=== PATIENT | female | born 1990 | race Caucasian/White ===

== ENCOUNTER → 2023-09-05 08:16 | Outpatient (CLI) | payer BC, SELFPAY ==
--- NOTE | ~2023-09-05 | US_ITS ---
US OB limited 09/05/2023 08:40 Indication: Follow-up subchorionic hemorrhage Procedure: Limited obstetrical ultrasound utilizing transabdominal technique Comparison: No prior studies for comparison. Findings: A single living intrauterine in breech presentation. Placenta is posterior measur ing 1.1 cm to the cervix. Cervical length is 5.2 cm. heart rate is 159 BPM. Amniotic fluid volu me is subjectively normal. No evidence for subchorionic hemorrhage. Impression: 1: Single living intrauterine in breech presentation. 2: Low-lying posterior placenta measuring 1.1 cm to the cervix. 2: No evidence for subchorionic hemorrhage. Reviewed, dictated and finalized at location L. Impression: 1: Single living intrauterine in breech presentation. 2: Low-lying posterior placenta measuring 1.1 cm to the cervix. 2: No evidence for subchorionic hemorrhage.
== END ==
PROVIDERS: PCP Obstetrics & Gynecology Gynecology; Visit Provider Obstetrics & Gynecology Gynecology
DX: O36.8910 Maternal care for other specified fetal problems, first trimester, not applicable or unspecified (principal); Z3A.00 Weeks of gestation of pregnancy not specified
CPT/HCPCS: 76815

== ENCOUNTER 2024-01-18 17:13 | Outpatient (CLI) | payer BC, SELFPAY ==
[2024-01-18] VITALS (15 sets, daily range): BP systolic 139–149; BP diastolic 85–98; PULSE 65–89; RESP 16; TEMP 37; O2SAT 99–100; BMI 40.5
[2024-01-18 17:51] LABS: Basophils Percent Auto 0.2 % (0.2-1.2); Eosinophils Percent Auto 0.2 % (0-4.4); Hematocrit 37.1 % (37.0-47.0); Hemoglobin 12.2 g/dL (12.0-15.0); Immature Granulocyte Absolute 0.09 K/mm3 (0.00-0.031); Immature Granulocyte Percent A 0.7 % (0-0.5); Lymphocytes Percent Auto 23.4 % (18.3-44.2); Mean Corpuscular HGB Conc 32.9 g/dl (32-36); Mean Corpuscular Hemoglobin 30.5 pg (26-34); Mean Corpuscular Volume 92.8 fl (80-100); Mean Platelet Volume 10.6 fl (7.4-10.4); Monocytes Absolute Auto 0.6 K/mm3 (0.1-0.6); Monocytes Percent Auto 4.9 % (2.6-8.5); Neutrophils Percent Auto 70.6 % (45.5-73.1); Platelet Count Result 285 k/mm3 (150-375); Red Cell Distribution Width 13.1 % (11.5-14.5); White Blood Count 12.8 K/mm3 (4.5-10.0)
[2024-01-18 17:58] LABS: Total Protein Urine Random 12 mg/dL
[2024-01-18 18:02] LABS: Alanine Aminotransferase 11 U/L (6-35); Albumin Level 3.5 g/dL (3.5-5.1); Alkaline Phosphatase 103 U/L (38-126); Anion Gap 6 mmol/L (8-16); Aspartate Amino Transferase 16 U/L (14-36); Bilirubin,Total 0.3 mg/dL (0.2-1.3); Blood Urea Nitrogen 5 mg/dL (7-17); Calcium 9.1 mg/dL (8.4-10.2); Carbon Dioxide 22 mmol/L (22-30); Chloride 104 mmol/L (98-107); Estimated Glomerular Filt Rate > 60; Glucose 89 mg/dL (65-110); Potassium 3.9 mmol/L (3.4-5.0); Sodium 132 mmol/L (137-145); Uric Acid 6.1 mg/dL (2.5-7.5)
[2024-01-18 18:08] LABS: Appearance Urine Cloudy (Clear); Bacteria Urine 3+ /hpf; Bilirubin Urine Negative (Negative); Blood Urine Negative (Negative); Color Urine Yellow (Yellow); Glucose Urine UA Negative (Negative); Ketones Urine Negative (Negative); Leukocyte Esterase Ur 3+ LEU/UL (Negative); Need Manual Microscopic Reviewed; Nitrate Urine Negative (Negative); Non Pathogenic Casts 0-2; Protein Urine Negative (Negative); RBC Urine 0-2 /hpf (0-2); Specific Grav Ur 1.008 (1.001-1.035); Squamous Epithelial Cell Urine Occasional /hpf (Few); Urobilinogen Urine 0.2 mg/dL (<2.0); WBC Urine 21-50 /hpf
[2024-01-18 18:09] LABS: Add Urine Microscopic? YES
--- NOTE | 2024-01-18 18:14 | PC.NURSE ---
Called and spoke with Dr. Monteiro. Informed MD of pt's BPs, lab results, and FHT. MD verbalized understanding, would like pt to proceed with 24 hr urine, discharge orders given at this time. RN repeated order to confirm.
== END 2024-01-18 18:22 | disposition home or self-care (01) ==
LOC: ANHOBOP 17:20 → ANHOBPP 17:20
PROVIDERS: PCP Nurse Practitioner Family; Visit Provider Obstetrics & Gynecology Gynecology
DX: O13.9 Gestational [pregnancy-induced] hypertension without significant proteinuria, unspecified trimester (principal)
CPT/HCPCS: 36415; 59025; 80053; 81001; 81050; 82570; 82575; 84156; 84550; 85025; 87086; 99199

== ENCOUNTER 2024-01-19 17:14 | Outpatient (NON) | payer BC, SELFPAY ==
[2024-01-19 17:24] VITALS: BMI 40.5
[2024-01-19 18:27] LABS: Collection Time Urine 24 HOURS
[2024-01-19 18:29] LABS: Total Volume 24 Hour Urine 1200 ml
[2024-01-19 18:30] LABS: Patient Weight 298 Lbs
[2024-01-19 18:40] LABS: Creatinine Clearance Urine 125.5 ml/min (75-125); Creatinine Urine 153.3 mg/dL; Total Protein Urine 24 Hr 84 mg/24hr (28-141); Total Protein Urine Random 7 mg/dL
== END 2024-01-19 17:15 | disposition home or self-care (01) ==
LOC: ANHOBOP 17:20
PROVIDERS: PCP Nurse Practitioner Family; Visit Provider Obstetrics & Gynecology Gynecology
DX: O13.9 Gestational [pregnancy-induced] hypertension without significant proteinuria, unspecified trimester (principal)
CPT/HCPCS: 81050; 82575; 84156

== ENCOUNTER 2024-01-21 10:07 | Observation (INO) | payer BC, SELFPAY ==
[2024-01-21 10:31] VITALS: BP 141/85; PULSE 87
[2024-01-21 10:46] VITALS: BP 152/81; PULSE 75
[2024-01-21 10:52] VITALS: BMI 40.5
[2024-01-21 11:01] VITALS: BP 147/81; PULSE 70
--- NOTE | 2024-01-21 11:15 | OBADM ---
This patient, Thang Garvin, admitted to the OB room OB Post 117 for observation. Patient/family oriented to hospital policies and general routines including ID bracelet, bed and alarms, visiting hours, pain management, procedures, bathroom and other care routines, personal items, smoking policy, room service/diet, and visiting hours. Patient/Family are encouraged to report perceived risks to care and to ask questions if they do not understand what they are told or what they should do. Pt. presents to OB unit with reports of falling down approx. 8 steps at home while carrying the laundry basket. She states she slid down most of them, then tumbled over after the last step with the laundry basket hitting the top of her abdomen. Pt. denies any bleeding, reports movement present since fall. Abdomen soft and non-tender upon palpation.
--- NOTE | 2024-01-21 11:21 | PC.NURSE ---
1105--Report to Dr. Cleary re: fhr tracing reactive, assessment findings, v.s., pt's Hx and recent lab results. Orders to monitor for a couple hours and if tracing continues to be reactive, DC home.
--- NOTE | 2024-01-23 11:54 | PM.OBTRLD ---
OB - Triage/Final Diagnosis Visit Information Comments/Additional reasons for admission: I have assessed the risk for this patient, Thang Riri Garvin, and determined that she would benefit from observation care. Final Diagnosis (1) Fall (on) (from) other stairs and steps, initial encounter: Code(s): W10.8XXA - Fall (on) (from) other stairs and steps, initial encounter Status: Acute
== END 2024-01-21 12:28 | disposition home or self-care (01) ==
PROVIDERS: Admitting Provider Obstetrics & Gynecology; PCP Nurse Practitioner Family; Visit Provider Obstetrics & Gynecology
DX: Z04.3 Encounter for examination and observation following other accident (principal); W10.8XXA Fall (on) (from) other stairs and steps, initial encounter; Z3A.34 34 weeks gestation of pregnancy
CPT/HCPCS: G0378; G0379

== ENCOUNTER 2024-01-31 12:45 | Outpatient (CLI) | payer BC, SELFPAY ==
[2024-01-31 13:10] LABS: Hematocrit 36.6 % (37.0-47.0); Hemoglobin 11.8 g/dL (12.0-15.0); Mean Corpuscular HGB Conc 32.2 g/dl (32-36); Mean Corpuscular Hemoglobin 29.9 pg (26-34); Mean Corpuscular Volume 92.9 fl (80-100); Mean Platelet Volume 11.1 fl (7.4-10.4); Platelet Count Result 260 k/mm3 (150-375); Red Blood Count 3.94 M/mm3 (4.2-5.4); White Blood Count 11.1 K/mm3 (4.5-10.0)
[2024-01-31 13:31] LABS: Alanine Aminotransferase 12 U/L (6-35); Albumin Level 3.2 g/dL (3.5-5.1); Alkaline Phosphatase 91 U/L (38-126); Anion Gap 5 mmol/L (8-16); Aspartate Amino Transferase 16 U/L (14-36); Bilirubin,Total 0.2 mg/dL (0.2-1.3); Blood Urea Nitrogen 8 mg/dL (7-17); Carbon Dioxide 22 mmol/L (22-30); Chloride 106 mmol/L (98-107); Estimated Glomerular Filt Rate > 60; Glucose 113 mg/dL (65-110); Sodium 133 mmol/L (137-145); Uric Acid 6.6 mg/dL (2.5-7.5)
== END 2024-01-31 12:46 | disposition home or self-care (01) ==
LOC: ANHLAB 12:46
PROVIDERS: PCP Nurse Practitioner Family; Visit Provider Advanced Practice Midwife
DX: O10.013 Pre-existing essential hypertension complicating pregnancy, third trimester (principal); O99.891 Other specified diseases and conditions complicating pregnancy; Z3A.00 Weeks of gestation of pregnancy not specified
CPT/HCPCS: 36415; 80053; 81050; 84156; 84550; 85027

== ENCOUNTER 2024-02-01 13:12 | Outpatient (CLI) | payer BC, SELFPAY ==
[2024-02-01 15:33] LABS: Total Volume 24 Hour Urine 1500 ml
[2024-02-01 15:42] LABS: Total Protein Urine 24 Hr 165 mg/24hr (28-141); Total Protein Urine Random 11 mg/dL
== END 2024-02-01 13:13 | disposition home or self-care (01) ==
LOC: ANHLAB 13:14
PROVIDERS: PCP Nurse Practitioner Family; Visit Provider Obstetrics & Gynecology Gynecology
DX: O99.891 Other specified diseases and conditions complicating pregnancy (principal); O10.013 Pre-existing essential hypertension complicating pregnancy, third trimester; Z3A.00 Weeks of gestation of pregnancy not specified
CPT/HCPCS: 81050; 84156

== ENCOUNTER 2024-02-02 16:10 | Inpatient (IN) | payer BC, SELFPAY ==
[2024-02-02] VITALS (29 sets, daily range): BP systolic 120–162; BP diastolic 68–104; PULSE 57–85; RESP 17; TEMP 36.1–36.6; BMI 41.8
--- NOTE | 2024-02-02 16:10 | LDADM ---
This patient, Thang Garvin, was admitted to Labor/Delivery/Recovery 104 on 02/02/24 at 16:10. Plans for labor, pain management and were discussed with patient. Patient/family oriented to hospital policies and general routines including ID bracelet, bed and alarms, visiting hours, pain management, procedures, bathroom and other care routines, personal items, smoking policy, room service/diet and guest tray routines, security routines, and visiting hours. Patient/Family are encouraged to report perceived risks to care and to ask questions if they do not understand what they are told or what they should do. See OBIX for further documentation.
[2024-02-02 17:23] LABS: Basophils Percent Auto 0.3 % (0.2-1.2); Eosinophils Percent Auto 0.3 % (0-4.4); Hematocrit 35.4 % (37.0-47.0); Hemoglobin 11.9 g/dL (12.0-15.0); Immature Granulocyte Absolute 0.06 K/mm3 (0.00-0.031); Immature Granulocyte Percent A 0.5 % (0-0.5); Lymphocytes Absolute Auto 3.16 K/mm3 (0.9-3.2); Mean Corpuscular HGB Conc 33.6 g/dl (32-36); Mean Corpuscular Hemoglobin 30.6 pg (26-34); Mean Platelet Volume 11.3 fl (7.4-10.4); Monocytes Absolute Auto 0.6 K/mm3 (0.1-0.6); Monocytes Percent Auto 5.1 % (2.6-8.5); Neutrophils Absolute Auto 7.4 K/mm3 (1.3-6.7); Neutrophils Percent Auto 65.8 % (45.5-73.1); Platelet Count Result 250 k/mm3 (150-375); Red Blood Count 3.89 M/mm3 (4.2-5.4); White Blood Count 11.3 K/mm3 (4.5-10.0)
[2024-02-02] MEDS: NIFEdipine 30 MG TAB.ER.24 PO ×2 (17:23→19:14)
[2024-02-02] MEDS: miSOPROStol 25 MCG TABLET BY MOUTH (17:23)
[2024-02-02 17:32] LABS: Alanine Aminotransferase 17 U/L (6-35); Albumin Level 3.2 g/dL (3.5-5.1); Alkaline Phosphatase 98 U/L (38-126); Anion Gap 2 mmol/L (8-16); Aspartate Amino Transferase 18 U/L (14-36); Bilirubin,Total 0.2 mg/dL (0.2-1.3); Blood Urea Nitrogen 8 mg/dL (7-17); Calcium 9.9 mg/dL (8.4-10.2); Carbon Dioxide 24 mmol/L (22-30); Chloride 109 mmol/L (98-107); Estimated CRCL calculation 154 ml/min; Estimated Glomerular Filt Rate > 60; Glucose 111 mg/dL (65-110); Potassium 3.7 mmol/L (3.4-5.0); Sodium 135 mmol/L (137-145); Uric Acid 6.8 mg/dL (2.5-7.5)
[2024-02-02] MEDS: CALCIUM CARBONATE (TUMS) 500 MG (200 MG ELEMENTAL) PO (18:14)
[2024-02-02] MEDS: miSOPROStol 25 MCG TABLET 50 MCG BY MOUTH (21:24)
[2024-02-02 22:17] LABS: Glucose Point of Care 103 mg/dl (65-105)
[2024-02-03] VITALS (293 sets, daily range): BP systolic 101–163; BP diastolic 54–112; PULSE 48–136; RESP 16–19; TEMP 36.2–37; O2SAT 93–100
[2024-02-03 01:33] LABS: Glucose Point of Care 80 mg/dl (65-105)
[2024-02-03] MEDS: miSOPROStol 25 MCG TABLET 50 MCG BY MOUTH (01:38)
[2024-02-03 05:15] LABS: Glucose Point of Care 122 mg/dl (65-105)
[2024-02-03] MEDS: LACTATED RINGERS 1,000 ML 125 ML IV CONT ×4 (05:39→23:37)
[2024-02-03] MEDS: OXYTOCIN 30 UNITS/NS 500 ML 30 UNITS/500 ML BAG IV CONT (05:40)
[2024-02-03] MEDS: NIFEdipine 30 MG TAB.ER.24 60 MG PO (05:50)
[2024-02-03] MEDS: FLUoxetine HCL 10 MG CAPSULE PO (06:03)
[2024-02-03 07:06] LABS: Glucose Point of Care 111 mg/dl (65-105)
--- NOTE | 2024-02-03 09:52 | WPDOBADMIT ---
Obstetrics - Admit Note Admission Note: record reviewed. No pertinent additions to the history and/or any subsequent changes in the physical findings that are not consistent with the expected course of the were found. Additions to the history and/or subsequent changes in the physical findings follow. Here with worsening BP and severe headache from office last pm for MIL. Patient with CHTN with significant increase in BP, meds, and symptoms it was recommended to induce. Cytotec last pm and progressed from / to . Changed to pitocin at 530 am. AROM with clear fluid at approx. 0900. Getting epidural. BP on admit and for first several hours elevated in severe range. Given her usual dose of Procardia XL 30 at 5pm and second dose added. BPs now 140-150's/90's. Continue MIL. Cervix /-2 FHTs reactive
--- NOTE | 2024-02-03 10:04 | WPDANESEPP ---
Anes - Eval Pre Procedure Procedure: Labor Epidural Date/Time: 02/03/24 10:04 Surgeon: Pedro Pablo Preop Diagnosis: Labor Pain Pre Op Diagnosis: Induction of Labor Patient Data Age: 33 Gender: F Height: 1.83 m Weight: 140 kg Last Vital Signs Temp 36.6 C 02/03/24 09:00 Pulse 76 02/03/24 10:01 Resp 19 02/03/24 09:00 BP 149/83 H 02/03/24 10:04 Pulse Ox 100 02/03/24 10:02 O2 Del Method Room Air 02/03/24 06:35 Allergies Allergy/AdvReac Type Severity Reaction Status Date / Time No Known Allergies Allergy Mild Verified 09/04/14 10:53 Home Medications Medication Instructions Recorded Confirmed Type fluoxetine 20 mg tablet 20 mg PO DAILY 01/18/24 02/02/24 History nifedipine 30 mg tablet,extended 30 mg PO HS 01/18/24 02/02/24 History release 24 hr (Procardia XL) vit no.133-ferrous 1 tablet PO DAILY 01/18/24 02/02/24 History fumarate 28 mg-folic acid 800 mcg tablet () nifedipine 60 mg tablet,extended 60 mg PO QAM 02/02/24 02/02/24 History release Laboratory Tests 02/02/24 02/02/24 02/02/24 17:13 17:13 17:13 WBC 11.3 H K/mm3 (4.5-10.0) RBC 3.89 L M/mm3 (4.2-5.4) Hgb 11.9 L g/dL (12.0-15.0) Hct 35.4 L % (37.0-47.0) MCV 91.0 fl (80-100) MCH 30.6 pg (26-34) MCHC 33.6 g/dl (32-36) RDW 13.0 % (11.5-14.5) Plt Count 250 k/mm3 (150-375) MPV 11.3 H fl (7.4-10.4) Immature Gran % (Auto) 0.5 % (0-0.5) Neut % (Auto) 65.8 % (45.5-73.1) Lymph % (Auto) 28.0 % (18.3-44.2) [place] % (Auto) 5.1 % (2.6-8.5) Eos % (Auto) 0.3 % (0-4.4) Baso % (Auto) 0.3 % (0.2-1.2) Lymph # (Auto) 3.16 K/mm3 (0.9-3.2) [place] # (Auto) 0.6 K/mm3 (0.1-0.6) Eos # (Auto) 0.0 K/mm3 (0-0.3) Baso # (Auto) 0.0 K/mm3 (0.0-0.1) Abs Immat Gran (auto) 0.06 H K/mm3 (0.00-0.031) Absolute Neuts (auto) 7.4 H K/mm3 (1.3-6.7) Absolute Nucleated RBC 0.0 K/mm3 (0.0-0.012) Nucleated RBC % 0.0 % (0.0-0.2) Sodium 135 L mmol/L Cancelled (137-145) Potassium 3.7 mmol/L Cancelled (3.4-5.0) Chloride 109 H mmol/L (98-107) Carbon Dioxide Anion Gap BUN Creatinine Estim Creat Clear Calc Estimated GFR Glucose POC Capillary Glucose Uric Acid Calcium Total Bilirubin AST ALT Alkaline Phosphatase Total Protein Albumin RPR Blood Type Antibody Screen 02/02/24 02/02/24 02/02/24 17:13 17:13 17:13 WBC RBC Hgb Hct MCV MCH MCHC RDW Plt Count MPV Immature Gran % (Auto) Neut % (Auto) Lymph % (Auto) [place] % (Auto) Eos % (Auto) Baso % (Auto) Lymph # (Auto) [place] # (Auto) Eos # (Auto) Baso # (Auto) Abs Immat Gran (auto) Absolute Neuts (auto) Absolute Nucleated RBC Nucleated RBC % Sodium Potassium Chloride Cancelled Carbon Dioxide 24 mmol/L Cancelled (22-30) Anion Gap 2 L mmol/L Cancelled (8-16) BUN 8 mg/dL (7-17) Creatinine Estim Creat Clear Calc Estimated GFR Glucose POC Capillary Glucose Uric Acid Calcium Total Bilirubin AST ALT Alkaline Phosphatase Total Protein Albumin
[2024-02-03 11:51] LABS: Glucose Point of Care 83 mg/dl (65-105)
[2024-02-03 15:51] LABS: Glucose Point of Care 118 mg/dl (65-105)
[2024-02-03] MEDS: NIFEdipine 30 MG TAB.ER.24 PO (17:15)
[2024-02-03] MEDS: fentaNYL CITRATE INJ (*CRX) 100 MCG/2 ML VIAL IV PUSH (18:18)
[2024-02-03] MEDS: SODIUM CHLORIDE 0.9% IV 300 ML 600 ML I-UTERINE ×2 (19:39→21:18)
[2024-02-03 19:48] LABS: Glucose Point of Care 120 mg/dl (65-105)
[2024-02-03] MEDS: SODIUM CHLORIDE 0.9% IV 1,000 ML 100 ML I-UTERINE ×2 (20:19→23:55)
[2024-02-03 22:01] LABS: Glucose Point of Care 92 mg/dl (65-105)
[2024-02-03 23:44] LABS: Glucose Point of Care 99 mg/dl (65-105)
[2024-02-04] VITALS (56 sets, daily range): BP systolic 118–160; BP diastolic 70–102; PULSE 71–171; RESP 18–20; TEMP 36.4–37.1; O2SAT 90–100
[2024-02-04 01:46] LABS: Glucose Point of Care 109 mg/dl (65-105)
[2024-02-04] MEDS: LIDOCAINE HCL 1% LOCAL INJ 20 ML VIAL (04:02)
--- NOTE | 2024-02-04 04:17 | PM.OBPRVD ---
OB - Vaginal Delivery Note Procedure Delivery date: 02/04/24 Events: Chronic Hypertension and Gestational Diabetes (GDMA1) Induction method: AROM, Per Misoprostol Protocol and Per Pitocin Protocol Delivery monitor: External FHT and Internal Uterine Route of delivery: Laceration Description: Perineal - 2nd Degree and Labial (extended to left lower labia) Delivery repair: vicryl (3-0 ) Specimen: Yes (placenta) Quantitative Blood Loss (ml): 300 Anesthesia type: Local Disposition: Floor Complications: No immediate complications [place] Baby Weeks of gestation at delivery: 36 (36 5/7 wks) gender: Male Weight (pounds): 6 Weight (ounces): 15 presentation: vertex position: Right Occiput Anterior Placenta delivery description: Spontaneous Cord Vessel Description: 3 Vessels, Nuchal Cord (tight x 2) and Delayed Cord Clamping Narrative: Apgars not assigned at the time of note
--- NOTE | 2024-02-04 04:21 | PM.OBDSVD ---
DS: Admitting Diagnosis Discharge Date 02/05/24 Admitting Diagnosis CHTN with worsening BP and Sx of PIH 36 3/7 wks DS: Discharge Diagnosis Discharge Diagnosis (1) (normal spontaneous vaginal delivery): Code(s): O80 - Encounter for full-term uncomplicated delivery Status: Acute OB - DS: Summary OB Procedures : NST, PIH Mgmt and Ultrasound OB Procedures Intrapartum: Spontaneous Vag Delivery OB Procedures: : None Peripartum Data Delivery Method: Natural Vaginal Laceration Description: Perineal - 2nd Degree and Labial (extended to left lower labia) complications: none Status at Discharge Functional status at discharge: independent ambulation Overall status at discharge: patient is progressing back to baseline Time Spent with Patient Time attestation: Total time spent providing and/or coordinating discharge services: DS: Data Data Completed and Pending Labs on day of discharge: Labs from last 24 hours 02/04/24 02/03/24 02/03/24 01:41 23:36 21:57 POC Capillary Glucose 109 H 99 92 02/03/24 02/03/24 02/03/24 19:45 15:41 11:46 POC Capillary Glucose 120 H 118 H 83 02/03/24 02/03/24 07:03 05:10 POC Capillary Glucose 111 H 122 H Discharge Plan Discharge Attending physician on discharge: Lalitha Monteiro Discharging Clinician: Lalitha Monteiro Anticipated Discharge Date/Time: 02/06/24 04:22 Patient Disposition: Home, Self-Care Activity: may shower, may drive after 2 weeks and pelvic rest Diet: regular Discharge Instructions: Education: Mom and Baby Guide Given to: Mother Follow-Up: Call your delivering provider's office for an appointment to be seen in: 1 Week Mom and baby should come to the [facility] for the follow-up appointment. Appointment Date/Time: February 06, 2024 at 11:00 am What to expect at your follow-up visit: Blood Pressure Check, Physical Assessment Call [phone] if you are unable to keep your appointment time. BREAST CARE: * Wear a snug supportive bra. * For engorgement discomfort: Breast Feeding: * Apply warm moist washcloths * Express milk as needed to relieve engorgement * Wear loose clothing Bottle Feeding: * May apply ice packs * For sore nipples: * Identify correct latch-on * Apply warm moist washcloths before and after nursing * Air dry nipples after nursing * May apply Lansinoh cream to nipples EPISIOTOMY/PERINEAL CARE: * Until bleeding stops, use your garrett bottle after urinating * Change your pad frequently throughout the day * You may take sitz baths several times a day (fill your bathtub with warm water and soak for 20 minutes.) Do NOT bathe in the water * No tub baths until seen by your physician - You may shower ACTIVITY: * Rest as much as possible. * Do not exercise or lift anything heavier than your baby (such as laundry or other children.) * Avoid stairs or driving as much as possible. * Do not put anything into the vagina. No douching, tampons, or sexual activity until seen by physician. NOTIFY PHYSICIAN IF YOU HAVE ANY QUESTIONS OR IF ANY OF THE FOLLOWING SYMPTOMS OCCUR: * If your episiotomy or incision becomes red, swollen, or more painful than what you have experienced in the hospital. * If your vaginal bleeding becomes foul smelling. * If your vaginal bleeding becomes more heavy than a period or if your bleeding changes from pink to bright red. However, you may pass an occasional walnut-sized clot once or twice for the first week . * If you experience a sharp, shooting pain in you calves. * If you discover a hard, reddened area on your breast or if you experience flu-like symptoms. DIET: * Eat regular, well-balanced meals. * Drink plenty of fluids daily. If , drink to thirst. Stand Alone Forms: General Discharge Information Follo
[2024-02-04] MEDS: OXYTOCIN 30 UNITS/NS 500 ML 30 UNITS/500 ML BAG 125 UNITS IV CONT (04:30)
[2024-02-04] MEDS: ACETAMINOPHEN 325 MG TABLET 650 MG (05:06)
[2024-02-04] MEDS: NIFEdipine 30 MG TAB.ER.24 PO ×2 (06:00→18:35)
[2024-02-04] MEDS: FLUoxetine HCL 20 MG CAPSULE PO (06:27)
[2024-02-04] MEDS: WITCH HAZEL 40 PADS 1 PAD TOPICAL (06:45)
[2024-02-04] MEDS: BENZOCAINE 20% AER SPR (*SP) 56 GM CAN 1 SPRAY TOPICAL (06:45)
--- NOTE | 2024-02-04 07:30 | PC.NURSE ---
Patient transferred to post room #280 per wheelchair from labor and delivery. Support person present. Oriented to unit, room, information board, rooming in, admission packet and security measures. Patient verbalizes understanding.
[2024-02-04] MEDS: IBUPROFEN 600 MG TABLET PO ×2 (10:20→21:44)
[2024-02-04] MEDS: MULTIVIT/MIN/PREN/FOL AC/IRON TABLET 1 TAB PO (10:20)
[2024-02-04] MEDS: ACETAMINOPHEN 325 MG TABLET 650 MG PO (21:45)
--- NOTE | 2024-02-04 22:03 | PC.NURSE ---
Patient ambulated with spouse to [facility] nursery to visit with baby until transfer is complete.
[2024-02-05 00:19] VITALS: BP 145/86; PULSE 76; RESP 18; TEMP 36.6; O2SAT 98
[2024-02-05] MEDS: NIFEdipine 30 MG TAB.ER.24 PO (05:05)
[2024-02-05] MEDS: IBUPROFEN 600 MG TABLET PO (05:05)
[2024-02-05] MEDS: FLUoxetine HCL 20 MG CAPSULE PO (05:05)
[2024-02-05] MEDS: ACETAMINOPHEN 325 MG TABLET 650 MG PO (05:06)
[2024-02-05 05:13] VITALS: BP 143/85; PULSE 80; RESP 16; TEMP 36.2; O2SAT 99
[2024-02-05 05:30] LABS: Hematocrit 34.8 % (37.0-47.0); Hemoglobin 11.3 g/dL (12.0-15.0)
--- NOTE | 2024-02-05 08:26 | WPDANLDPN2 ---
Anes-Prog Note L&D Date/Time: 02/05/24 08:26 Comfortable throughout: labor and delivery Neuraxial method: epidural Epidural/Spinal procedure site: clean & non-tender Neuro status: Neuro function grossly intact. Cardiovascular status: normal Respiratory status: normal Airway patency: baseline Mental status: baseline Post-Op hydration status: normal Vital Signs: Last Vital Signs Temp 36.2 C L 02/05/24 05:13 Pulse 80 02/05/24 05:13 Resp 16 02/05/24 05:13 BP 143/85 H 02/05/24 05:13 Pulse Ox 99 02/05/24 05:13 O2 Del Method Room Air 02/03/24 06:35 Pain score (VAS): 12/06 I/O: Intake & Output 02/04/24 02/05/24 02/05/24 23:59 07:59 15:59 Intake Total 1500 1200 Output Total 1448 1860 Balance 52 -660 Post-procedural complaints: none Patient feedback: Patient satisfied with anesthetic care.
--- NOTE | 2024-02-05 08:39 | PM.OBPNVD ---
OB - PN: Subj Subjective Date/time seen: 02/05/24 08:39 Patient comments: no complaints and pain well controlled baby status: doing well and NICU OB - PN: Obj Data Labs 02/05/24 05:20 02/02/24 17:13 Labs: Laboratory Results - last 24 hr 02/05/24 05:20 Hgb 11.3 L Hct 34.8 L OB - PN A/P Assessment and Plan (1) Chronic hypertension: Code(s): I10 - Essential (primary) hypertension Status: Acute Assessment and Plan: blood pressure stable on Procardia XL 30 twice a day DC home to observe and call for severe range pressures. Plan day: 1 Plan: routine care, discharge home and follow up 6 weeks ( and 1 week for blood pressure check) Time Spent With Patient Time: Total time spent is greater than 50% in coordination of care (as documented) at patient's floor/unit and/or counseling patient: Exam : Bimanual exam- vagina & uterus: other (Uterus firm, nt @U)
[2024-02-05 08:45] VITALS: BP 138/81; PULSE 81; RESP 18
--- NOTE | 2024-02-05 08:45 | PC.NURSE ---
Patient instructed to view the discharge video Mother & Baby Care, The First Two Weeks . Patient was given the opportunity and encouraged to ask questions. Patient verbalized understanding of information shared and has been given the mother/baby guide for home reference.
[2024-02-05] MEDS: MULTIVIT/MIN/PREN/FOL AC/IRON TABLET 1 TAB PO (08:54)
[2024-02-05 15:50] LABS: Rapid Plasma Reagin Non-Reactive (NonReactive)
[2024-02-06 10:02] VITALS: BP 150/81; PULSE 71; RESP 18; TEMP 36.8; O2SAT 100
== END 2024-02-05 08:56 | disposition home or self-care (01) | DRG 807 ==
LOC: ANHLDR 02-04 04:23 → ANHOB2 02-04 08:24
PROVIDERS: Admitting Provider Obstetrics & Gynecology Gynecology; PCP Nurse Practitioner Family; Visit Provider Obstetrics & Gynecology Gynecology
DX: O11.4 Pre-existing hypertension with pre-eclampsia, complicating childbirth (principal); Z37.0 Single live birth; Z3A.36 36 weeks gestation of pregnancy; O24.429 Gestational diabetes mellitus in childbirth, unspecified control; O70.1 Second degree perineal laceration during delivery; O69.1XX0 Labor and delivery complicated by cord around neck, with compression, not applicable or unspecified
CPT/HCPCS: 36415; 80053; 82948; 84550; 85014; 85018; 85025; 86592; 86850; 86900; 86901; A9270; J2590; J2795; J3010; J7030; J7120

== ENCOUNTER 2025-02-03 13:07 | Emergency (ER) | payer BC, SELFPAY ==
[2025-02-03] VITALS (22 sets, daily range): BP systolic 133–154; BP diastolic 79–99; PULSE 62–83; RESP 11–22; TEMP 36.8–37.1; O2SAT 97–100
--- NOTE | ~2025-02-03 | XR_ITS ---
XR chest 1V portable Ordering provider: Blu Raza III DO History: 34 years Female with . altered loc . Comparison: None. FINDINGS: MEDIASTINUM: The cardiac silhouette is not enlarged. LUNGS: No infiltrates, effusions or pneumothorax. OTHER: No free air under the diaphragm. IMPRESSION: No acute cardiopulmonary pathology. Reviewed, dictated and finalized at location A.
--- NOTE | ~2025-02-03 | CT_ITS ---
EXAMINATION: CT brain wo con DATE: 02/03/2025 14:02 INDICATION: Weakness. Altered level of consciousness. TECHNIQUE: Computed tomography (CT) of the head was performed without intravenous contrast. The mA wa s adjusted according to patient size. Iterative reconstruction technique was employed. The dose-lengt h product was 605.33 mGy-cm. COMPARISON: None FINDINGS: There is no intracranial hemorrhage, acute infarction, or abnormal intracranial mass lesion . The ventricles are normal in size. There is mild mucosal thickening in the ethmoid sinuses. The orb its are normal. The mastoid air cells are normal. IMPRESSION: 1. Normal brain. Reviewed, dictated and finalized at location B. IMPRESSION: 1. Normal brain.
[2025-02-03 13:26] LABS: Glucose Point of Care 114 mg/dl (65-105)
--- NOTE | 2025-02-03 13:49 | ED_ITS ---
HPI - General Adult General Chief complaint: Neuro Symptoms/Deficit Stated complaint: not feeling well Left side feels asleep Time Seen by Provider: 02/03/25 13:34 History of Present Illness HPI narrative: Pt presents with weakness in both legs and numbness in left side. Pt denies WALSH or neck pain or fever. Pt is drowsy but answers all questions appropriately and follows commands. Related Data Home Medications ?Medication ?Instructions ?Recorded ?Confirmed ?Last Taken ?Type fluoxetine 20 mg tablet 20 mg PO DAILY 01/18/24 02/02/24 02/01/24 07:00 History nifedipine 30 mg tablet,extended 30 mg PO HS 01/18/24 02/02/24 02/01/24 17:00 History release 24 hr (Procardia XL) vit no.133-ferrous 1 tablet PO DAILY 01/18/24 02/02/24 02/01/24 07:00 History fumarate 28 mg-folic acid 800 mcg tablet () Allergies Allergy/AdvReac Type Severity Reaction Status Date / Time No Known Allergies Allergy Mild Verified 02/03/25 13:09 Review of Systems 2 Review of Systems: All systems reviewed & are unremarkable except as noted in HPI and below PMFSH Family History Family History Grandparent Diabetes mellitus Mother Hypertension Colon cancer Grandparent Multiple sclerosis Father Squamous cell carcinoma Social History Social History Years smoked: 15 Smoking status: Former smoker Alcohol intake: current Substance use: never Do You Feel Safe in your Home?: Yes Lack of Transportation: No Lack of Food: Never True Current Housing: I Have Housing Concerned About Future Housing: No Difficulty Paying Gas/Electric Bills: No Difficulty Paying for Meds: No Currently Unemployed: No Education: Associate Degree Difficulty w/ Childcare or Family Care: No Spiritual care concerns: No Exam 2 Const: General: healthy appearing, no acute distress and alert O rientation/consciousness: patient oriented x3 Limitations: no limitations HENMT: Head: normal to inspection Eyes: Conjunctivae: conjunctivae normal Pupils: Equal, round and reactive pupils present EOM: EOMs intact bilaterally Neck: Neck: normal visual inspection Resp: Effort & Inspection: normal respiratory effort Auscultation: clear to auscultation bilaterally Cardio: Rate: regular rate Rhythm: regular rhythm GI: GI Palp: Yes Soft to palpation and No Tenderness to palpation present (GI) Auscultation: normal bowel sounds Back/Spine/Pelvis: Back: no CVA tenderness Skin: General skin exam: normal color Rashes: no rashes Wounds: no wounds Neuro: General: patient oriented x3, moves all extremities, no meningeal signs, no focal motor deficits and CN's II-XI intact bilaterally Cranial nerves: Yes Nystagmus not present Speech: normal speech Extrem: General: normal to inspection and no clubbing, cyanosis or edema Psych: Mental Status: mental status grossly normal Affect: Sad affect present Attitude: cooperative Course Vital Signs Vital signs: Vital Signs Temperature 98.2 F 02/03/25 13:11 Pulse Rate 74 02/03/25 13:11 Respiratory Rate 16 02/03/25 13:11 Blood Pressure 147/82 H 02/03/25 13:11 Pulse Oximetry 100 02/03/25 13:11 Oxygen Delivery Room Air 02/03/25 13:11 Temperature 98.8 F 02/03/25 16:57 Pulse Rate 74 02/03/25 16:57 Respiratory Rate 16 02/03/25 16:57 Blood Pressure 140/82 02/03/25 16:57 Pulse Oximetry 100 02/03/25 16:57 Oxygen Delivery Room Air 02/03/25 13:11 Medical Decision Making MDM Narrative Medical decision making narrative: has b/l leg weakness and numbness in left side for 4 hrs and is somewhat listless but alert and follows commands. will do septic labs and ua and cxr and ct head. Pt symptoms have resolved. CT and all work up unremarkable. Pt would like to go home. will return if concerns. Vital Signs Vital Signs: Vital Signs Temperature 98.2 F 02/03/25 13:11 Pulse Rate 74 02/03/25 13:11 Respiratory Rate 16 02/03/25 13:11 Blood Pressure 147/82 H 02/03/25 13:11 Pulse Oximetry 100 02/03/25 13:11 Oxygen Delivery Room Air 02/03/25 13:11 Temperature 98.8 F 02/03/25 16:57 Pulse Rate 74 02/03/25 16:57 Respiratory Rate 16 02/03/25 16:57 Blood Pressure 140/82 02/03/25 16:57 Pulse Oximetry 100 02/03/25 16:57 Oxygen Delivery Room Air 02/03/25 13:11 Lab Data 02/03/25 14:19 02/03/25 14:19 Labs: Lab Results 02/03/25 02/03/25 02/03/25 Range/Units 10:06 13:20 14:19 WBC 8.2 (4.5-10.0) K/mm3 RBC 4.51 (4.2-5.4) M/mm3 Hgb 13.4 (12.0-15.0) g/dL Hct 41.3 (37.0-47.0) % MCV 91.6 (80-100) fl MCH 29.7 (26-34) pg MCHC 32.4 (32-36) g/dl RDW 12.3 (11.5-14.5) % Plt Count 336 (150-375) k/mm3 MPV 9.4 (7.4-10.4) fl Immature Gran % (Auto) 0.4 (0-0.5) % Neut % (Auto) 59.6 (45.5-73.1) % Lymph % (Auto) 33.7 (18.3-44.2) % [place] % (Auto) 5.0 (2.6-8.5) % Eos % (Auto) 0.6 (0-4.4) % Baso % (Auto) 0.7 (0.2-1.2) % Lymph # (Auto) 2.77 (0.9-3.2) K/mm3 [place] # (Auto) 0.4 (0.1-0.6) K/mm3 Eos # (Auto) 0.1 (0-0.3) K/mm3 Baso # (Auto) 0.1 (0.0-0.1) K/mm3 Abs Immat Gran (auto) 0.03 (0.00-0.031) K/mm3 Absolute Neuts (auto) 4.9 (1.3-6.7) K/mm3 Absolute Nucleated RBC 0.000 (0.0-0.012) K/mm3 Nucleated RBC % 0.0 (0.0-0.2) % PT 12.8 (11.1-14.7) Seconds INR 0.9 APTT 27.7 (22.3-36.8) Seconds Sodium 139 (137-145) mmol/L Potassium 4.1 (3.4-5.0) mmol/L Chloride 103 (98-107) mmol/L Carbon Dioxide 26 (22-30) mmol/L Anion Gap 10 (4-12) mmol/L BUN 11 (7-17) mg/dL Creatinine 0.93 (0.7-1.0) mg/dL Estim Creat Clear Calc Not Reportable Estimated GFR > 60 (59 - ) Glucose 107 (65-110) mg/dL POC Capillary Glucose 114 H (65-105) mg/dl Lactic Acid 1.3 (0.7-2.0) mmol/L Calcium 9.2 (8.4-10.2) mg/dL Total Bilirubin 0.3 (0.2-1.3) mg/dL AST 20 (14-36) U/L ALT 22 (6-35) U/L Alkaline Phosphatase 92 (38-126) U/L Troponin I < 0.012 (0.000-0.034) ng/mL Total Protein 7.0 (6.3-8.2) g/dL Albumin 4.0 (3.5-5.1) g/dL TSH 0.130 L (0.465-4.680) uIU/mL Urine Color Yellow (Yellow) Urine Appearance Clear (Clear) Urine pH 6.5 (5.0-9.0) Ur Specific [place] 1.013 (1.001-1.035) Urine Protein Negative (Negative) mg/dL Urine Glucose (UA) Negative (Negative) mg/dL Urine Ketones Negative (Negative) mg/dL Ur Blood (Man) Negative (Negative) Urine Nitrate Negative (Negative) Urine Bilirubin Negative (Negative) Urine Urobilinogen 0.2 (<2.0) mg/dL Leukocyte Esterase Rfl Negative (Negative) TONJA/UL POC Urine HCG, Qual (Negative) 02/03/25 Range/Units 14:49 WBC (4.5-10.0) K/mm3 RBC (4.2-5.4) M/mm3 Hgb (12.0-15.0) g/dL Hct (37.0-47.0) % MCV (80-100) fl MCH (26-34) pg MCHC (32-36) g/dl RDW (11.5-14.5) % Plt Count (150-375) k/mm3 MPV (7.4-10.4) fl Immature Gran % (Auto) (0-0.5) % Neut % (Auto) (45.5-73.1) % Lymph % (Auto) (18.3-44.2) % [place] % (Auto) (2.6-8.5) % Eos % (Auto) (0-4.4) % Baso % (Auto) (0.2-1.2) % Lymph # (Auto) (0.9-3.2) K/mm3 [place] # (Auto) (0.1-0.6) K/mm3 Eos # (Auto) (0-0.3) K/mm3 Baso # (Auto) (0.0-0.1) K/mm3 Abs Immat Gran (auto) (0.00-0.031) K/mm3 Absolute Neuts (auto) (1.3-6.7) K/mm3 Absolute Nucleated RBC (0.0-0.012) K/mm3 Nucleated RBC % (0.0-0.2) % PT (11.1-14.7) Seconds INR APTT (22.3-36.8) Seconds Sodium (137-145) mmol/L Potassium (3.4-5.0) mmol/L Chloride (98-107) mmol/L Carbon Dioxide (22-30) mmol/L Anion Gap (4-12) mmol/L BUN (7-17) mg/dL Creatinine (0.7-1.0) mg/dL Estim Creat Clear Calc Estimated GFR (59 - ) Glucose (65-110) mg/dL POC Capillary Glucose (65-105) mg/dl Lactic Acid (0.7-2.0) mmol/L Calcium (8.4-10.2) mg/dL Total Bilirubin (0.2-1.3) mg/dL AST (14-36) U/L ALT (6-35) U/L Alkaline Phosphatase (38-126) U/L Troponin I (0.000-0.034) ng/mL Total Protein (6.3-8.2) g/dL Albumin (3.5-5.1) g/dL TSH (0.465-4.680) uIU/mL Urine Color (Yellow) Urine Appearance (Clear) Urine pH (5.0-9.0) Ur Specific [place] (1.001-1.035) Urine Protein (Negative) mg/dL Urine Glucose (UA) (Negative) mg/dL Urine Ketones (Negative) mg/dL Ur Blood (Man) (Negative) Urine Nitrate (Negative) Urine Bilirubin (Negative) Urine Urobilinogen (<2.0) mg/dL Leukocyte Esterase Rfl (Negative) TONJA/UL POC Urine HCG, Qual Negative (Negative) Discharge Plan Discharge Clinical Impression: Weakness Patient Disposition: Home, Self-Care Condition: Improved Instructions: Antibiotic Form, Paresthesia (ED), Weakness (ED) Patient Language: Korean Prescriptions: No Action nifedipine [Procardia XL] 30 mg Tablet Extended Release 24hr 30 mg PO HS fluoxetine 20 mg Tablet 20 mg PO DAILY 28-800 mg-mcg Tablet 1 tablet PO DAILY nifedipine [Procardia XL] 30 mg Tablet Extended Release 24hr 30 mg PO DAILY@0500 Qty: 60 0RF Follow-up/Referrals: Sudeep,Jeannette Parsons APRN [Non-Staff] -
[2025-02-03 14:25] LABS: Basophils Absolute Auto 0.1 K/mm3 (0.0-0.1); Basophils Percent Auto 0.7 % (0.2-1.2); Eosinophils Absolute Auto 0.1 K/mm3 (0-0.3); Eosinophils Percent Auto 0.6 % (0-4.4); Hematocrit 41.3 % (37.0-47.0); Hemoglobin 13.4 g/dL (12.0-15.0); Immature Granulocyte Absolute 0.03 K/mm3 (0.00-0.031); Immature Granulocyte Percent A 0.4 % (0-0.5); Lymphocytes Absolute Auto 2.77 K/mm3 (0.9-3.2); Lymphocytes Percent Auto 33.7 % (18.3-44.2); Mean Corpuscular HGB Conc 32.4 g/dl (32-36); Mean Corpuscular Hemoglobin 29.7 pg (26-34); Mean Corpuscular Volume 91.6 fl (80-100); Mean Platelet Volume 9.4 fl (7.4-10.4); Monocytes Absolute Auto 0.4 K/mm3 (0.1-0.6); Neutrophils Absolute Auto 4.9 K/mm3 (1.3-6.7); Neutrophils Percent Auto 59.6 % (45.5-73.1); Platelet Count Result 336 k/mm3 (150-375); Red Blood Count 4.51 M/mm3 (4.2-5.4); Red Cell Distribution Width 12.3 % (11.5-14.5); White Blood Count 8.2 K/mm3 (4.5-10.0)
[2025-02-03 14:34] LABS: Lactic Acid Reflex 1.3 mmol/L (0.7-2.0)
[2025-02-03 14:35] LABS: Alanine Aminotransferase 22 U/L (6-35); Alkaline Phosphatase 92 U/L (38-126); Anion Gap 10 mmol/L (4-12); Aspartate Amino Transferase 20 U/L (14-36); Bilirubin,Total 0.3 mg/dL (0.2-1.3); Blood Urea Nitrogen 11 mg/dL (7-17); Calcium 9.2 mg/dL (8.4-10.2); Carbon Dioxide 26 mmol/L (22-30); Chloride 103 mmol/L (98-107); Estimated Glomerular Filt Rate > 60; Glucose 107 mg/dL (65-110); Potassium 4.1 mmol/L (3.4-5.0); Sodium 139 mmol/L (137-145)
[2025-02-03 14:51] LABS: BEDSIDEPREGUCG Negative (Negative)
[2025-02-03 14:53] LABS: Troponin I < 0.012 ng/mL (0.000-0.034)
[2025-02-03 14:55] LABS: INR 0.9; Prothrombin Time 12.8 Seconds (11.1-14.7)
[2025-02-03 14:56] LABS: Partial Thromboplastin Time 27.7 Seconds (22.3-36.8)
[2025-02-03 14:58] LABS: Add Urine Microscopic? NO; Appearance Urine Clear (Clear); Bilirubin Urine Negative (Negative); Blood Urine Negative (Negative); Color Urine Yellow (Yellow); Glucose Urine UA Negative (Negative); Ketones Urine Negative (Negative); Leukocyte Esterase Ur Negative LEU/UL (Negative); Nitrate Urine Negative (Negative); Protein Urine Negative (Negative); Specific Grav Ur 1.013 (1.001-1.035); Urobilinogen Urine 0.2 mg/dL (<2.0); pH Urine 6.5 (5.0-9.0)
--- OUTSIDE RECORDS SUMMARY | 2025-02-03 15:05 | XMS_ITS | Encounter Summary ---
Author Organization [facility] Address [address] [place] [address] Care Team Providers Care Wheel Filler Name Role Phone Jeannette Sheets [facility] Primary Care Provider Lalitha Khan MD Unavailable [phone] Franci Sandhu MD Unavailable [phone] Billy Cadet MD Unavailable [phone] Radha Childs [facility] Unavailable [phone] West Pelletier MD Primary Care Provider Encounter Details Date Type Department Care Team (Late st Contact Info) Description 09/07/2022 MyChart Message Enc [facility] Family Medicine [address] [address] Jeannette Sheets [facility] New meds Social History Tobacco Use Types Packs/Day Years Used Date Smoking Tobacco: Every Day Cigarettes 0.5 16 Smokeless Tobacco: Never Alcohol Use Standard Drinks/Week Comments Yes 0 (1 standard drink = 0.6 oz pur e alcohol) Occasionally AUDIT-C Answer Date Recorded Frequency of Alcohol Consumption Never 11/05/2019 Average Number of Drinks Not on file 019 Frequency of Binge Drinking Not on file 10/27 PHQ-2 Answer Date Recorded PHQ-2 Score - If the patient scores above 3, please move on to questions 3-9 0 07/28/2022 Comments No Sex and Gender Information Value Date Recorded Sex Assigned at Not on file 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 Gender Identity Not on file Sexual Orientation Not on file documented as of this encounter Plan of Treatment Not on file documented as of this encounter Visit Diagnoses Not on filedocumented in this encounter Additional Health Concerns Assessment Noted Time PHQ-9 Depression Total Score: 0 07/28/20 22 8:11 AM CDT documented as of this encounter Care Teams Wheel Filler Relationship Specialty Start Date End Date Jeannette Sheets [facility] PCP - General NURSE PRACTITIONER 11/05/19 07/25/24 West Pelletier MD [address] [place] [phone] PCP - General FAMILY PRACTICE 07/26/24 Lalitha Monteiro MD [address] [place] [address] OBGYN 11/05/19 Franci Sandhu MD [address] [place] [address] DERMATOLOGY 11/05/19 Billy Cadet MD [address] [facility] [address] [place] [address] GASTROENTEROLOGY 05/11/21 Radha Childs [facility] [address] [employer] [address] [place] [address] OBGYN 01/25/23 documented as of this encounter
--- OUTSIDE RECORDS SUMMARY | 2025-02-03 15:05 | XMS_ITS | Encounter Summary ---
Author Organization [facility] Address [facility] [place] [address] Care Team Providers Care Traffic Control Officer Name Role Phone Jeannette Sheets [facility] Primary Care Provider Lalitha Khan MD Unavailable [phone] Franci Sanduh MD Unavailable [phone] Billy Cadet MD Unavailable [phone] Radha Childs [facility] Unavailable [phone] West Pelletier MD Primary Care Provider [phone] Encounter Details Date Type Department Care Team (Late st Contact Info) Description 06/13/2021 MyChart Message Enc [facility] Family Medicine [address] [address] Jeannette Sheets [facility] RE: Medication Questions Social History Tobacco Use Types Packs/Day Years Used Date Smoking Tobacco: Every Day Cigarettes 0.5 15 Smokeless Tobacco: Never Alcohol Use Standard Drinks/Week Comments Not Currently 0 (1 standard drink = 0.6 oz pur e alcohol) Occasionally AUDIT-C Answer Date Recorded Frequency of Alcohol Consumption Never 11/05/2019 Average Number of Drinks Not on file 019 Frequency of Binge Drinking Not on file 10/27 PHQ-2 Answer Date Recorded PHQ-2 Score - If the patient scores above 3, please move on to questions 3-9 0 02/09/2021 Comments No Sex and Gender Information Value Date Recorded Sex Assigned at Not on file 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 Gender Identity Not on file Sexual Orientation Not on file documented as of this encounter Plan of Treatment Not on file documented as of this encounter Visit Diagnoses Not on filedocumented in this encounter Care Teams Traffic Control Officer Relationship Specialty Start Date End Date [facility] - General NURSE PRACTITIONER 11/05/19 07/25/24 West Pelletier MD [address] [place] [phone] PCP - General FAMILY PRACTICE 07/26/24 Lalitha Monteiro MD [address] [facility] [address] [place] [address] OBGYN 11/05/19 Franci Sandhu MD [address] [place] [address] DERMATOLOGY 11/05/19 Billy Cadet MD [address] [facility] [address] [place] [address] GASTROENTEROLOGY 05/11/21 Radha Childs [facility] [address] [facility] [address] [place] [address] OBGYN 01/25/23 documented as of this encounter
--- OUTSIDE RECORDS SUMMARY | 2025-02-03 15:05 | XMS_ITS | Encounter Summary ---
Author Organization [facility] Address [facility] [place] [address] Care Team Providers Care Edge Bander Hand Name Role Phone Jeannette Sheets [facility] Primary Care Provider Lalitha Khan MD Unavailable [phone] Franci Sandhu MD Unavailable [phone] Billy Cadet MD Unavailable [phone] Rahda Childs [facility] Unavailable [phone] West Pelletier MD Primary Care Provider [phone] Encounter Details Date Type Department Care Team (Late st Contact Info) Description 02/17/2021 MyChart Message Enc [facility] Family Medicine [address] [address] Jeannette Sheets [facility] RE: Medication Questions Social History Tobacco Use [...] on file 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 No / Unsure 02/08/2021 5:08 PM CDT documented as of this encounter Plan of Treatment Not on file documented as of this encounter Visit Diagnoses Not on filedocumented in this encounter Care Teams Edge Bander Hand Relationship Specialty Start Date End Date Jeannette Sheets [facility] PCP - General NURSE PRACTITIONER 11/05/19 07/25/24 West Pelletier MD [address] [place] [phone] PCP - General FAMILY PRACTICE 07/26/24 Lalitha Monteiro MD [address] [facility] [address] [place] [address] OBGYN 11/05/19 Franci Sandhu MD [address] [place] [address] DERMATOLOGY 11/05/19 Billy Cadet MD [address] [facility] [address] [place] [address] GASTROENTEROLOGY 05/11/21 Radha Childs [facility] [address] [employer] [address] [place] [address] OBGYN 01/25/23 documented as of this encounter
--- OUTSIDE RECORDS SUMMARY | 2025-02-03 15:05 | XMS_ITS | Encounter Summary ---
Author Organization [facility] Address [address] [place] [address] Care Team Providers Care Associate Software Development Engineer Name Role Phone Jeannette Sheets [facility] Primary Care Provider Lalitha Khan MD Unavailable [phone] Franci Sandhu MD Unavailable [phone] Billy Cadet MD Unavailable [phone] Radha Childs [facility] Unavailable [phone] West Pelletier MD Primary Care Provider [phone] Encounter Details Date Type Department Care Team (Late st Contact Info) Description 12/07/2020 MyChart Message Enc [facility] Family Medicine [address] [address] Jeannette Sheets [facility] RE: PLEASE COMPLETE LABS Social History Tobacco Use Types Packs/Day Years Used Date Smoking Tobacco: Every Day Cigarettes 0.5 15 Smokeless Tobacco: Never Alcohol Use Standard Drinks/Week Comments Not Currently 0 (1 standard drink = 0.6 oz pur e alcohol) Occasionally AUDIT-C Answer Date Recorded Frequency of Alcohol Consumption Never 11/05/2019 Average Number of Drinks Not on file 019 Frequency of Binge Drinking Not on file 10/27 Comments No Sex and Gender Information Value Date Recorded Sex Assigned at Not on file 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 Gender Identity Not on file Sexual Orientation Not on file documented as of this encounter Plan of Treatment Not on file documented as of this encounter Visit Diagnoses Not on filedocumented in this encounter Care Teams Associate Software Development Engineer Relationship Specialty Start Date End Date Jeannette Sheets [facility] PCP - General NURSE PRACTITIONER 11/05/19 07/25/24 West Pelletier MD [address] [place] [address] PCP - General FAMILY PRACTICE 07/26/24 Lalitha Monteiro MD [address] [email or web address] [address] [place], [place] [address] OBGYN 11/05/19 Franci Sandhu MD [address] [place] [address] DERMATOLOGY 11/05/19 Billy Cadet MD [address] [facility] [address] [place] [address] GASTROENTEROLOGY 05/11/21 Radha Childs [facility] [address] [employer] [address] [place], [place] [address] OBGYN 01/25/23 documented as of this encounter
--- OUTSIDE RECORDS SUMMARY | 2025-02-03 15:05 | XMS_ITS | Encounter Summary ---
Author Organization [facility] Address [address] [place] [address] Care Team Providers Care Bilingual Operator Name Role Phone Jeannette Sheets [facility] Primary Care Provider Lalitha Khan MD Unavailable [phone] Franci Sandhu MD Unavailable [phone] Billy Cadet MD Unavailable [phone] Radha Childs [facility] Unavailable [phone] West Pelletier MD Primary Care Provider [phone] Encounter Details Date Type Department Care Team (Late st Contact Info) Description 07/16/2024 MyChart Message Enc [facility] Family Medicine [address] [address] Jeannette Sheets [facility] July Social History Tobacco Use Types Packs/Day Years Used Date Smoking Tobacco: Former Cigarettes 0.5 16 1 - 09/10/2022 Smokeless Tobacco: Never Alcohol Use Standard Drinks/Week Comments Not Currently 0 (1 standard drink = 0.6 oz pur e alcohol) Occasionally AUDIT-C Answer Date Recorded Frequency of Alcohol Consumption Never 11/05/2019 Average Number of Drinks Not on file 019 Frequency of Binge Drinking Not on file 10/27 PHQ-2 Answer Date Recorded Patient Health Questionnaire-2 Score 0 05/02/2024 Comments No Sex and Gender Information Value Date Recorded Sex Assigned at Not on file 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 - General NURSE PRACTITIONER 11/05/19 07/25/24 West Pelletier MD [address] [place] [address] PCP - General FAMILY PRACTICE 07/26/24 Lalitha Monteiro MD [address] [place], [place] [address] OBGYN 11/05/19 Franci Sandhu MD [address] [place] [address] DERMATOLOGY 11/05/19 Billy Cadet MD [address] [facility] [address] [place] [address] GASTROENTEROLOGY 05/11/21 Radha Childs [facility] [address] [employer] [address] [place] [address] OBGYN 01/25/23 documented as of this encounter
--- OUTSIDE RECORDS SUMMARY | 2025-02-03 15:05 | XMS_ITS | Clinical Summary ---
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 Gender Identity Not on file Sexual Orientation Not on file Plan of Treatment Health Maintenance Due Date Last Done Comments Hepatitis C Virus (HCV) Screening 1989 TdaP Immunization 1989 Hepatitis B Immunization (1 of 3 - 19+ 3-dose series) 2008 Pap Smear 2010 Cervical Cancer Screening (CCS) 2019 HPV/Cotest 2019 Influenza Immunization (#1) 2024 SARS-COV-2 Immunization ( season) 2024 Respiratory Syncytial Virus (RSV) Immunization (Adult) (1 - 1-dose 75+ series) 2064 Meningococcal Immunization (ACWY) Aged Out No longer eligible based on patient's age to complete this topic Pneumococcal Immunization Combined Aged Out No longer eligible based on patient's age to complete this topic Rotavirus Immunization Aged Out No lo nger eligible based on patient's age to complete this topic
--- OUTSIDE RECORDS SUMMARY | 2025-02-03 15:05 | XMS_ITS | Encounter Summary ---
Author Organization [facility] Address [address] [place] [address] Care Team Providers Care Resource Analyst Name Role Phone Jeannette Sheets [facility] Primary Care Provider Lalitha Khan MD Unavailable [phone] Franci Sandhu MD Unavailable [phone] Billy Cadet MD Unavailable [phone] Radha Childs [facility] Unavailable [phone] West Pelletier MD Primary Care Provider [phone] Encounter Details Date Type Department Care Team (Late st Contact Info) Description 02/09/2021 MyChart Message Enc [facility] Family Medicine [address] [address] Jeannette Sheets [facility] RE: Follow Up/Update Social History Tobacco Use Types Packs/Day Years [...] on file 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 [address] [place] [address] GASTROENTEROLOGY 05/11/21 Radha Childs [facility] [address] [employer] [address] [place] [address] OBGYN 01/25/23 documented as of this encounter
--- OUTSIDE RECORDS SUMMARY | 2025-02-03 15:05 | XMS_ITS | Encounter Summary ---
Author Organization [facility] Address [address] [place] [address] Care Team Providers Care Pest Control Supervisor Name Role Phone Unavailable Primary Care Provider Unavailabl e Encounter Details Date Type Department Care Team (Late st Contact Info) Description 01/31/2025 External Device Data [facility] ABSTRACTION Provider, Abstract NO ADDRESS ON FILE Social History Tobacco Use Types Packs/Day Years Used Date Smoking Tobacco: Never Assessed Comments Unknown Sex and Gender Information Value Date Recorded Sex Assigned at Not on file Legal Sex Female 4:22 PM CDT Gender Identity Not on file Sexual Orientation Not on file documented as of this encounter Plan of Treatment Not on file documented as of this encounter Visit Diagnoses Not on filedocumented in this encounter
--- OUTSIDE RECORDS SUMMARY | 2025-02-03 15:05 | XMS_ITS | Clinical Summary ---
Author Organization [facility] Address [address] [place] [address] Phone Care Team Providers Care Oven Unloader Name Role Phone Unavailable Primary Care Provider Unavailabl e Encounters Date Type Department Care Team Description 01/31/2025 External Device Data [facility] ABSTRACTION Provider, Abstract 01/29/2025 External Device Data [facility] ABSTRACTION Provider, Abstract 01/15/2025 External Device Data [facility] ABSTRACTION Provider, Abstract 12/24/2024 External Device Data [facility] ABSTRACTION Provider, Abstract 12/18/2024 External Device Data [facility] ABSTRACTION Provider, Abstract from Last 3 Months Social History Tobacco Use Types Packs/Day Years Used Date Smoking Tobacco: Never Assessed Comments Unknown Sex and Gender Information Value Date Recorded Sex Assigned at Not on file Legal Sex Female 4:22 PM CDT Gender Identity Not on file Sexual Orientation Not on file Plan of Treatment Health Maintenance Due Date Last Done Comments Pre-Diabetes and Diabetes Screening 1989 DTAP/TDAP/TD VACCINES (1 - Tdap) 2008 HEPATITIS B VACCINES (1 of 3 - 19+ 3-dose series) 2008 CERVICAL CANCER SCREENING 2019 INFLUENZA VACCINE (#1) 2024 COVID-19 Vaccine (2 - 2023-2 5 season) 2024 10/28/2021 HPV VACCINES Aged Out No longer eligi ble based on patient's age to complete this topic PNEUMOCOCCAL VACCINE 0-49 YEARS Aged Out No longer eligible based on patient's age to complete this topic Insurance BCBS BLUE ACCESS/TRUE BLUE PPO
--- OUTSIDE RECORDS SUMMARY | 2025-02-03 15:05 | XMS_ITS | Encounter Summary ---
Author Organization [facility] Address [facility] [place] [address] Care Team Providers Care Ripening Room Attendant Name Role Phone Jeannette Sheets [facility] Primary Care Provider Lalitha Khan MD Unavailable [phone] Franci Sandhu MD Unavailable [phone] Billy Cadet MD Unavailable [phone] Radha Childs [facility] Unavailable [phone] West Pelletier MD Primary Care Provider Encounter Details Date Type Department Care Team (Late st Contact Info) Description 05/18/2022 Neocrafts Message Enc [facility] Family Medicine [address] [address] Ravindra, [facility] Provider Appointment Social History Tobacco Use Types Packs/Day Years [...] 3, please move on to questions 3-9 6 05/19/2022 Comments No Sex and Gender Information Value Date Recorded Sex Assigned at Not on file 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 No / Unsure 05/18/2022 4:32 PM CDT documented as of this encounter Plan of Treatment Not on file documented as of this encounter Visit Diagnoses Not on filedocumented in this encounter Additional Health Concerns Assessment Noted Time PHQ-9 Depression Total Score: 13 022 12:59 PM CDT documented as of this encounter Care Teams Ripening Room Attendant Relationship Specialty Start Date End Date Jeannette Sheets [facility] PCP - General NURSE PRACTITIONER 11/05/19 07/25/24 West Pelletier MD [facility] [place] [address] PCP - General FAMILY PRACTICE 07/26/24 Lalitha Monteiro MD [address] [employer] [address] [place] [address] OBGYN 11/05/19 Franci Sandhu MD [address] [place] [address] DERMATOLOGY 11/05/19 Billy Cadet MD [address] [facility] [address] [place] [address] GASTROENTEROLOGY 05/11/21 Radha Childs [facility] [address] [employer] [address] [place] [address] OBGYN 01/25/23 documented as of this encounter
--- OUTSIDE RECORDS SUMMARY | 2025-02-03 15:05 | XMS_ITS | Clinical Summary ---
Author Organization [facility] Address [address] [place] [address] Care Team Providers Care Material Combiner Name Role Phone Lalitha Monteiro MD Unavailable [phone] Franci Sandhu MD Unavailable [phone] Billy Cadet MD Unavailable [phone] Radha Childs [facility]- Unavailable [phone] West Pelletier MD Primary Care Provider [phone] Allergies No known active allergies Medications Clobetasol Propionate 0.05 % Shampoo 1 Active zolpidem (AMBIEN) 10 MG tabletIndication s:Primary insomnia TAKE 1 TABLET(10 MG) BY MOUTH EVERY NIGHT NEEDED FOR SLEEP 90 tablet 3 Active Additional Information Patient not taking.Reported on 05/02/2024 NIFEdipine ER (ADALAT CC) 30 MG 24 hr tabletIndication s:Benign hypertension TAKE 1 TABLET(30 MG) BY MOUTH DAILY 90 tablet 1 4 Active vitamin D2, ergocalciferol, (DRISDOL) 1.25 mg capsule TAKE 1 CAPSULE BY MOUTH ONE DAY A WEEK 4 Active FLUoxetine (PROZAC) 20 MG capsuleIndicatio ns:Moderate episode of recurrent major depressive disorder (CMS/HCC) Take 1 capsule (20 mg total) by mouth daily. 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 11/05/2019 Primary insomnia 11/05/2019 History of seizures 11/05/2019 Elevated glucose 11/05/2019 Resolved Problems Problem Noted Date Diagnosed Date Resolved Date Tobacco use 11/10/2021 01/25/2023 Encounters Date Type Department Care Team Description 11/07/2024 Scan [facility] INFO SRVCS Scanned, Doc [facility] from Last 3 Months Immunizations Name Administration Dates Next Due Influenza Adult (Generic) 12/19/2023 PFIZER COVID-19 (ORIGINAL FO RMULATION, PURPLE CAP) mRNA, LNP-S, PF, 30 MCG/0.3 ML DOSE 10/28/2021 Family History Medical History Relation Comments Asthma Brother 2 COPD Father Cancer Father [facility] Cancer Maternal Grandfather pancreatic, bladder Multiple Sclerosis Maternal Grandmother Alcohol Abuse Mother Cancer Mother bcc Depression Mother Hyperlipidemia Mother Hypertension Mother Diabetes Paternal Grandmother Relation Status Comments Brother 1 Alive Brother 2 Daughter Alive Father Alive Maternal Grandfather Maternal Grandmother Mother Alive Paternal Grandfather Alive Paternal Grandmother Social History Tobacco Use Types Packs/Day Years Used Date Smoking Tobacco: Former Cigarettes 0.5 16 1 - 09/10/2022 Smokeless Tobacco: Never Tobacco Cessation:Counseling Given: No Alcohol Use Standard Drinks/Week Comments Not Currently [...] on file 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 Gender Identity Not on file Sexual Orientation Not on file Last Filed Vital Signs Vital Sign Reading Time Taken Comments Blood Pressure 117/76 05/02/2024 2:08 PM CDT Pulse 82 05/02/2024 2:08 PM CDT Temperature 36.8 C (98.3 F) 05/02/2024 2:08 PM CDT Respiratory Rate 14 05/02/2024 2:08 PM CDT Oxygen Saturation 96% 05/02/2024 2:08 PM CDT Inhaled Oxygen Concentration - - Weight 122.9 kg (271 lb) 05/02/2024 2:08 PM CDT Height 182.9 cm (6') 05/02/2024 2:08 PM CDT Body Mass Index 36.75 05/02/2024 2:08 PM CDT Plan of Treatment Health Maintenance Due Date Last Done Comments Cervical Cancer Screening Pap Smear (Age 30 to 64) Every 3 Years 1989 Hepatitis C 2007 DTaP, Tdap and Td Vaccines (1 - Tdap) 2008 Hepatitis B Vaccines (1 of 3 - 19+ 3-dose series) 2008 Cervical Cancer Screening Pap with HPV Testing (Age 30 to 64) Every 5 Years 2019 Cervical Cancer Screening with HPV 2019 COVID-19 Vaccine ( season) 2024 10/28/2021, 10/07/2021 Annual Physical 08/01/2024 08/01/2023, 11/2021, 11/10/2021, Additional history exists Influenza Adult (#1) 2024 12/19/2023 PHQ-2 (Physician [place]) 11/27/2024 05/02/2024 PHQ-2 (Physician [place]) 05/02/2025 05/02/2024 HPV Vaccines Aged Out No longer eligi ble based on patient's age to complete this topic Meningococcal B Vaccine Aged Out No l onger eligible based on patient's age to complete this topic Meningococcal Vaccine Aged Out No wang michell eligible based on patient's age to complete this topic Pneumococcal Vaccine: Pediatrics (0 to 5 Years) and At-Risk Patients (6 to 64 Years) Aged Out No longer eligible based on patient's age to complete this topic RSV Immunizations Under 20 Months Aged Out No longer eligible based on patient's age to complete this [place] [place] [address] Care Teams Material Combiner Relationship Specialty Start Date End Date West Pelletier MD [address] [place] [phone] PCP - General FAMILY PRACTICE 07/26/24 Lalitha Monteiro MD [address] [id number] OBGYN 11/05/19 Franci Sandhu MD [address] [place] [address] DERMATOLOGY 11/05/19 Billy Cadet MD [address] [facility] [address] [place] [address] GASTROENTEROLOGY 05/11/21 Radha Childs, [facility]- [address] [place] [address] OBGYN 01/25/23
--- OUTSIDE RECORDS SUMMARY | 2025-02-03 17:20 | XMS_ITS | Encounter Summary ---
Author Organization [facility] Address [address] [place] [address] Care Team Providers Care Tool Shaper Set Up Operator Name Role Phone Jeannette Sheets [facility] Primary Care Provider Lalitha Khan MD Unavailable [phone] Franci Sandhu MD Unavailable [phone] Billy Cadet MD Unavailable [phone] Radha Childs [facility] Unavailable [phone] West Pelletier MD Primary Care Provider [phone] Encounter Details Date Type Department Care Team (Late st Contact Info) Description 07/16/[address] 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 Gender Identity Not on file Sexual Orientation Not on file documented as of this encounter Plan of Treatment Not on file documented as of this encounter Visit Diagnoses Not on filedocumented in this encounter Additional Health Concerns Assessment Noted Time PHQ-9 Depression Total Score: 4 05/02/20 24 2:13 PM CDT documented as of this encounter Care Teams Tool Shaper Set Up Operator Relationship Specialty Start Date End Date [facility] PCP - General NURSE PRACTITIONER 11/05/19 07/25/24 West Pelletier MD [address] [place] [address] PCP - General FAMILY PRACTICE 07/26/24 Lalitha Monteiro MD [address] [employer] [address] [place], [place] [id number] OBGYN 11/05/19 Franci Sandhu MD [address] [place] [address] DERMATOLOGY 11/05/19 Billy Cadet MD [address] [facility] [address] [place] [address] GASTROENTEROLOGY 05/11/21 Radha Childs [facility] 20[address] [employer] [address] [place] [address] OBGYN 01/25/23 documented as of this encounter
--- OUTSIDE RECORDS SUMMARY | 2025-02-03 17:20 | XMS_ITS | Encounter Summary ---
Author Organization [facility] Address [address] [place] [address] Care Team Providers Care Category Development Analyst Name Role Phone Unavailable Primary Care Provider [...]
--- OUTSIDE RECORDS SUMMARY | 2025-02-03 17:20 | XMS_ITS | Encounter Summary ---
Author Organization [facility] Address [facility] [place] [address] Care Team Providers Care Strap Sewer Name Role Phone Jeannette Sheets [facility] Primary Care Provider Lalitha Khan MD Unavailable [phone] Franci Sandhu MD Unavailable [phone] Billy Cadet MD Unavailable [phone] Radha Childs [facility] Unavailable [phone] West Pelletier MD Primary Care Provider [phone] Encounter Details Date Type Department Care Team (Late st Contact Info) Description 05/18/2022 Local[employer] Message Enc [facility] Medical Group Family Medicine [address] [address] Ravindra, [facility] Provider Appointment Social History Tobacco Use Types [...] on file 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 [place] [address] PCP - General FAMILY PRACTICE 07/26/24 Lalitha Monteiro MD [address] [employer] [address] [place] [address] OBGYN 11/05/19 Franci Sandhu MD [address] [place] [address] DERMATOLOGY 11/05/19 Billy Cadet MD [address] [facility] [address] [place] [address] GASTROENTEROLOGY 05/11/21 Radha Childs [facility] [address] [employer] [address] [place] [address] OBGYN 01/25/23 documented as of this encounter
--- OUTSIDE RECORDS SUMMARY | 2025-02-03 17:20 | XMS_ITS | Encounter Summary ---
Author Organization [facility] Address [facility] [place] [address] Care Team Providers Care Perinatal Director Name Role Phone Jeannette Sheets [facility] Primary Care Provider Lalitha Khan MD Unavailable [phone] Franci Sandhu MD Unavailable [phone] Billy Cadet MD Unavailable [phone] Radha Childs [facility] Unavailable [phone] West Pelletier MD Primary Care Provider Encounter Details Date Type Department Care Team (Late st Contact Info) Description 06/13/2021 MyChart Message Enc [facility] Medical Group Family Medicine [address] [address] Jeannette Sheets [facility] RE: Medication Questions Social History Tobacco Use [...] on file 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 Gender Identity Not on file Sexual Orientation Not on file documented as of this encounter Plan of Treatment Not on file documented as of this encounter Visit Diagnoses Not on filedocumented in this encounter Care Teams Perinatal Director Relationship Specialty Start Date End Date [facility] PCP - General NURSE PRACTITIONER 11/05/19 07/25/24 West Pelletire MD [address] [place] [address] PCP - General FAMILY PRACTICE 07/26/24 Lalitha Monteiro MD 2022 [facility] [address] [place] [address] OBGYN 11/05/19 Franci Sandhu MD [address] [place] [address] DERMATOLOGY 11/05/19 Billy Cadet MD [address] [facility] [address] [place] [address] GASTROENTEROLOGY 05/11/21 Radha Childs [facility] [facility] [address] [place] [address] OBGYN 01/25/23 documented as of this encounter
--- OUTSIDE RECORDS SUMMARY | 2025-02-03 17:20 | XMS_ITS | Encounter Summary ---
Author Organization [facility] Address [address] [place] [address] Care Team Providers Care Tobacco Weigher Name Role Phone Jeannette Sheets [facility] Primary Care Provider Lalitha Khan MD Unavailable [phone] Franci Sandhu MD Unavailable [phone] Billy Cadet MD Unavailable [phone] Radha Childs [facility] Unavailable [phone] West Pelletier MD Primary Care Provider [phone] Encounter Details Date Type Department Care Team (Late st Contact Info) Description 09/07/2022 MyChart Message Enc [facility] Medical Group Family Medicine [address] [address] Jeannette Sheets [facility] New meds Social History Tobacco Use Types [...] on file 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 Gender Identity Not on file Sexual Orientation Not on file documented as of this encounter Plan of Treatment Not on file documented as of this encounter Visit Diagnoses Not on filedocumented in this encounter Additional Health Concerns Assessment Noted Time PHQ-9 Depression Total Score: 0 07/28/20 22 8:11 AM CDT documented as of this encounter Care Teams Tobacco Weigher Relationship Specialty Start Date End Date Jeannette Sheets [facility] PCP - General NURSE PRACTITIONER 11/05/19 07/25/24 West Pelletier MD [address] [place] [phone] PCP - General FAMILY PRACTICE 07/26/24 Lalitha Monteiro MD [address] [employer] [address] [place] [address] OBGYN 11/05/19 Franci Sandhu MD [address] [place] [address] DERMATOLOGY 11/05/19 Billy Cadet MD [address] [facility] [address] [place] [address] GASTROENTEROLOGY 05/11/21 Radha Childs [facility] 2022 [employer] [address] [place] [address] OBGYN 01/25/23 documented as of this encounter
--- OUTSIDE RECORDS SUMMARY | 2025-02-03 17:20 | XMS_ITS | Encounter Summary ---
Author Organization [facility] Address [address] [place] [address] Care Team Providers Care Director Of Quality Improvement Name Role Phone Jeannette Sheets [facility] Primary Care Provider Lalitha Khan MD Unavailable [phone] Franci Sandhu MD Unavailable [phone] Billy Cadet MD Unavailable [phone] Radha Childs [facility] Unavailable [phone] West Pelletier MD Primary Care Provider [phone] Encounter Details Date Type Department Care Team (Late st Contact Info) Description 12/07/2020 MyChart Message Enc [facility] Medical Group Family Medicine [address] [address] Jeannette Sheets [facility] RE: PLEASE COMPLETE LABS Social History Tobacco [...] on file 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 Gender Identity Not on file Sexual Orientation Not on file documented as of this encounter Plan of Treatment Not on file documented as of this encounter Visit Diagnoses Not on filedocumented in this encounter Care Teams Director Of Quality Improvement Relationship Specialty Start Date End Date Jeannette Sheets [facility] PCP - General NURSE PRACTITIONER 11/05/19 07/25/24 West Pelletier MD [address] [place] [address] PCP - General FAMILY PRACTICE 07/26/24 Lalitha Monteiro MD [address] [employer] [address] [place], [place] [address] OBGYN 11/05/19 Franci Sandhu MD [address] [place] [address] DERMATOLOGY 11/05/19 Billy Cadet MD [address] [facility] [address] [place] [address] GASTROENTEROLOGY 05/11/21 Radha Childs [facility] 2022 [employer] [address] [place], [place] [address] OBGYN 01/25/23 documented as of this encounter
--- OUTSIDE RECORDS SUMMARY | 2025-02-03 17:20 | XMS_ITS | Encounter Summary ---
Author Organization [facility] Address [address] [place] [address] Care Team Providers Care First Line Production Supervisor Name Role Phone Jeannette Sheets [facility] Primary Care Provider Lalitha Khan MD Unavailable [phone] Franci Sandhu MD Unavailable [phone] Billy Cadet MD Unavailable [phone] Radha Childs [facility] Unavailable [phone] West Pelletier MD Primary Care Provider [phone] Encounter Details Date Type Department Care Team (Late st Contact Info) Description 02/09/2021 MyChart Message Enc [facility] Medical Group Family Medicine [address] [address] Jeannette Sheets [facility] RE: Follow Up/Update Social History Tobacco Use [...] on file 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 Gender Identity Not on file Sexual Orientation [...] on filedocumented in this encounter Care Teams First Line Production Supervisor Relationship Specialty Start Date End Date Jeannette Sheets [facility] PCP - General NURSE PRACTITIONER 11/05/19 07/25/24 West Pelletier MD [facility] [place] [address] PCP - General FAMILY PRACTICE 07/26/24 Lalitha Monteiro MD [address] [employer] [facility] [address] [place] [address] OBGYN 11/05/19 Franci Sandhu MD [address] [place] [address] DERMATOLOGY 11/05/19 Billy Cadet MD [address] [facility] [address] [place] [address] GASTROENTEROLOGY 05/11/21 Radha Childs [facility] [address] [employer] [address] [place] [address] OBGYN 01/25/23 documented as of this encounter
--- OUTSIDE RECORDS SUMMARY | 2025-02-03 17:20 | XMS_ITS | Clinical Summary ---
Author Organization [facility] Address [address] [place] [address] Care Team Providers Care Food And Nutrition Teacher Name Role Phone Lalitha Monteiro MD Unavailable [phone] Franci Sandhu MD Unavailable [phone] Billy Cadet MD Unavailable [phone] Radha Childs [facility]- Unavailable [phone] West Peleltier MD Primary Care Provider [phone] Allergies No known active allergies Medications Clobetasol [...] History of COVID-19 12/07/2020 Benign hypertension 11/05/2019 long term current use of hormonal contraceptive 11/05/2019 Primary [...] COPD Father Cancer Father [facility] Cancer Maternal Grandfather pancreatic, bladder Multiple Sclerosis [...] on file 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 Gender Identity Not on file Sexual Orientation [...] Influenza Adult (#1) 2024 12/19/2023 PHQ-2 (Physician [place]) 11/27/2024 05/02/2024 PHQ-2 (Physician [place]) 05/02/2025 05/02/2024 HPV Vaccines Aged Out No [...] patient's age to complete this topic [place] [place] [address] Care Teams Food And Nutrition Teacher Relationship Specialty Start Date End Date West Pelletier MD [address] [place] [phone] PCP - General FAMILY PRACTICE 07/26/24 Lalitha Monteiro MD [address] [employer] [address] [id number] OBGYN 11/05/19 Franci Sandhu MD [address] [place] [address] DERMATOLOGY 11/05/19 Billy Cadet MD [address] [facility] [address] [place] [address] GASTROENTEROLOGY 05/11/21 Radha Childs, [facility]- [address] [employer] [address] [place] [address] OBGYN 01/25/23
--- OUTSIDE RECORDS SUMMARY | 2025-02-03 17:20 | XMS_ITS | Clinical Summary ---
Author Organization [facility] Address [address] [place] [address] Phone Care Team Providers Care Programmer Analyst Name Role Phone Unavailable Primary Care [...]
--- OUTSIDE RECORDS SUMMARY | 2025-02-03 17:20 | XMS_ITS | Encounter Summary ---
Author Organization [facility] Address [facility] [place] [address] Care Team Providers Care Biological Science Technician Fish Name Role Phone Jeannette Sheets [facility] Primary Care Provider Lalitha Khan MD Unavailable [phone] Franci Sandhu MD Unavailable [phone] Billy Cadet MD Unavailable [phone] Radha Childs [facility] Unavailable [phone] West Pelletier MD Primary Care Provider [phone] Encounter Details Date Type Department Care Team (Late st Contact Info) Description 02/17/2021 MyChart Message Enc [facility] Medical Group Family Medicine [address] [address] Jeannette Sheets [facility] RE: Medication Questions Social History Tobacco [...] on file 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 Gender Identity Not on file Sexual Orientation [...] on filedocumented in this encounter Care Teams Biological Science Technician Fish Relationship Specialty Start Date End Date Jeannette Sheets [facility] PCP - General NURSE PRACTITIONER 11/05/19 07/25/24 West Pelletier MD [address] [place] [phone] PCP - General FAMILY PRACTICE 07/26/24 Lalitha Monteiro MD 2022 [employer] [facility] [address] [place] [address] OBGYN 11/05/19 Franci Sandhu MD [address] [place] [address] DERMATOLOGY 11/05/19 Billy Cadet MD [address] [facility] [address] [place] [address] GASTROENTEROLOGY 05/11/21 Radha Childs [facility] 2022 [employer] [address] [place] [address] OBGYN 01/25/23 documented as of this encounter
--- OUTSIDE RECORDS SUMMARY | 2025-02-03 17:20 | XMS_ITS | Clinical Summary ---
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
== END 2025-02-03 16:46 | disposition home or self-care (01) ==
PROVIDERS: Emergency Provider Emergency Medicine
DX: R53.1 Weakness (principal); Z87.891 Personal history of nicotine dependence; Z79.899 Other long term (current) drug therapy
CPT/HCPCS: 36415; 70450; 71045; 80053; 81003; 81025; 82948; 83605; 84443; 84484; 85025; 85610; 85730; 99284

== ENCOUNTER 2025-03-26 08:39 | Outpatient (CLI) | payer BC, SELFPAY ==
--- OUTSIDE RECORDS SUMMARY | 2025-03-26 08:54 | XMS_ITS | Encounter Summary ---
Author Organization [facility] Address [facility] [place] [address] Care Team Providers Care Executive Chairman Name Role Phone Jeannette Sheets [facility] Primary Care Provider Lalitha Khan MD Unavailable [phone] Franci Sandhu MD Unavailable [phone] Billy Cadet MD Unavailable [phone] Radha Childs [facility] Unavailable [phone] West Pelletier MD Primary Care Provider [phone] Encounter Details Date Type Department Care Team (Late st Contact Info) Description 05/18/2022 [employer] Message Enc [facility] Medical Group Family Medicine [address] [address] Ravindra, [facility] Provider Appointment Social History Tobacco Use [...] on file 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 Gender Identity Not on file Sexual [...] documented as of this encounter Care Teams Executive Chairman Relationship Specialty Start Date End Date Jeannette Sheets [facility] PCP - General NURSE PRACTITIONER 11/05/19 07/25/24 West Pelletier MD [facility] [place] [address] PCP - General FAMILY PRACTICE 07/26/24 Lalitha Monteiro MD [address] [employer] [address] [place] [address] OBGYN 11/05/19 Franci Sandhu MD [address] [place] [address] DERMATOLOGY 11/05/19 Billy Cadet MD [address] [facility] [address] [place] [address] GASTROENTEROLOGY 05/11/21 Radha Childs [facility] [address] [employer] [address] [place] [address] OBGYN 01/25/23 documented as of this encounter
--- OUTSIDE RECORDS SUMMARY | 2025-03-26 08:54 | XMS_ITS | Encounter Summary ---
Author Organization [facility] Address [address] [place] [address] Care Team Providers Care Ornamental Metal Fabricator Apprentice Name Role Phone Jeannette Sheets [facility] Primary Care Provider Lalitha Khan MD Unavailable [phone] Franci Sandhu MD Unavailable [phone] Billy Cadet MD Unavailable [phone] Radha Childs [facility] Unavailable [phone] West Pelletier MD Primary Care Provider [phone] Encounter Details Date Type Department Care Team (Late st Contact Info) Description 12/07/[address] 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 Gender Identity Not on file Sexual Orientation Not on file documented as of this encounter Plan of Treatment Not on file documented as of this encounter Visit Diagnoses Not on filedocumented in this encounter Care Teams Ornamental Metal Fabricator Apprentice Relationship Specialty Start Date End Date Jeannette Sheets [facility] PCP - General NURSE PRACTITIONER 11/05/19 07/25/24 West Pelletier MD [address] [place] [address] PCP - General FAMILY PRACTICE 07/26/24 Lalitha Monteiro MD [address] [employer] [address] [place], [place] [address] OBGYN 11/05/19 Franci Sandhu MD [address] [place] [address] DERMATOLOGY 11/05/19 Billy Cadet MD [address] [facility] [address] [place] [address] GASTROENTEROLOGY 05/11/21 Radha Childs [facility] [address] [employer] [address] [place], [place] [id number] OBGYN 01/25/23 documented as of this encounter
--- OUTSIDE RECORDS SUMMARY | 2025-03-26 08:54 | XMS_ITS | Encounter Summary ---
Author Organization [facility] Address [address] [place] [address] Care Team Providers Care Dairy Farmworker Name Role Phone Jeannette Sheets [facility] Primary Care Provider Lalitha Khan MD Unavailable [phone] Franci Sandhu MD Unavailable [phone] Billy Cadet MD Unavailable [phone] Radha Childs [facility] Unavailable [phone] West Pelletier MD Primary Care Provider [phone] Encounter Details Date Type Department Care Team (Late st Contact Info) Description 02/09/2021 MyChart Message Enc [facility] Medical [facility] Family Medicine [address] [address] Jeannette Sheets [facility] RE: Follow Up/Update Social History Tobacco Use [...] on file 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 Gender Identity Not on file Sexual Orientation [...] on filedocumented in this encounter Care Teams Dairy Farmworker Relationship Specialty Start Date End Date Jeannette Sheets [facility] PCP - General NURSE PRACTITIONER 11/05/19 07/25/24 West Pelletier MD [facility] [place] [phone] PCP - General FAMILY PRACTICE 07/26/24 Lalitha Monteiro MD [address] [facility] [address] [place] [address] OBGYN 11/05/19 Franci Sandhu MD [address] [place] [address] DERMATOLOGY 11/05/19 Billy Cadet MD [address] [facility] [address] [place] [address] GASTROENTEROLOGY 05/11/21 Radha Childs [facility] [address] [employer] [address] [place] [address] OBGYN 01/25/23 documented as of this encounter
--- OUTSIDE RECORDS SUMMARY | 2025-03-26 08:54 | XMS_ITS | Clinical Summary ---
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 11/05/2019 Primary insomnia 11/05/2019 History of seizures 11/05/2019 Elevated glucose 11/05/2019 Resolved Problems Problem Noted Date Diagnosed Date Resolved Date Tobacco use 11/10/2021 01/25/2023 Encounters Date Type Department Care Team Description 02/03/2025 Scan [facility] INFO SRVCS Scanned, Doc Med Group Image (SCAN) from Last 3 Months Immunizations Immunization Administration Dates Next Due Influenza Adult (Generic) 12/19/2023 PFIZER COVID-19 (ORIGINAL FO RMULATION, PURPLE CAP) mRNA, LNP-S, PF, 30 MCG/0.3 ML DOSE 10/28/2021 Family History Medical History Relation Comments Asthma Brother 2 COPD Father Cancer Father [facility] Cancer Maternal Grandfather pancreatic, bladder Multiple [...] on file 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 Gender Identity Not on file Sexual Orientation [...] 08/01/2024 08/01/2023, 11/2021, 11/10/2021, Additional history exists PHQ-2 (Physician [place]) 11/27/2024 05/02/2024 HPV Vaccines Aged Out No longer eligi ble based on patient's age to complete this topic Meningococcal B Vaccine Aged Out No l onger eligible based on patient's age to complete this topic Meningococcal Vaccine Aged Out No wang michell eligible based on patient's age to complete this topic Pneumococcal Vaccine: Pediatrics (0 to 5 Years) and At-Risk Patients (6 to 49 Years) Aged Out No longer eligible based on patient's age to complete this topic RSV Immunizations Under 20 Months Aged Out No longer eligible based on patient's age to complete this topic Procedures Procedure Name Priority Date/Time Associated Diagnosis Comments IMAGE GENERIC 02/03/2025 from Last 3 Months Results * IMAGE GENERIC (02/03/2025) Anatomical Region Laterality Modality Other 02/03/2025 us Doc Med Group Scanned SCANNING Final Resu lt from Last 3 Months Insurance [facility] Care Teams Steam Drier Operator Relationship Specialty Start Date End Date West Pelletier MD [facility] [place] [phone] PCP - General FAMILY PRACTICE 07/26/24 Lalitha Monteiro MD [address] [employer] [facility] [address] [place] [address] OBGYN 11/05/19 Franci Sandhu MD [address] [place] [address] DERMATOLOGY 11/05/19 Billy Cadet MD [address] [facility] [address] [place] [address] GASTROENTEROLOGY 05/11/21 Radha Childs, WIND TURBINE PERFORMANCE ENGINEER- [address] [employer] [facility] [address] [place] [address] OBGYN 01/25/23
--- OUTSIDE RECORDS SUMMARY | 2025-03-26 08:54 | XMS_ITS | Clinical Summary ---
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
--- OUTSIDE RECORDS SUMMARY | 2025-03-26 08:54 | XMS_ITS | Clinical Summary ---
Author Organization [facility] Address [address] [place] [phone] Phone Care Team Providers Care Roll Up Machine Operator Name Role Phone Unavailable Primary Care Provider Unavailabl e Encounters Date Type Department Care Team Description 02/01/2025 External Device Data ST[facility] ABSTRACTION Provider, Abstract 01/31/2025 External Device Data [facility] ABSTRACTION Provider, [...] Health Maintenance Due Date Last Done Comments DTAP/TDAP/TD VACCINES (1 - Tdap) 2008 HEPATITIS B VACCINES (1 of 3 - 19+ 3-dose series) 2008 HPV/Cotest (21-29) 2010 CERVICAL CANCER SCREENING 2019 HPV/Cotest (30-65) 2019 PAP SMEAR 2019 INFLUENZA VACCINE (#1) 2024 COVID-19 Vaccine (2 - 2023-2 5 season) 2024 10/28/2021 HPV VACCINES Aged Out No longer eligi ble based on patient's age to complete this topic Insurance BCBS BLUE ACCESS/TRUE BLUE PPO
--- OUTSIDE RECORDS SUMMARY | 2025-03-26 08:54 | XMS_ITS | Encounter Summary ---
Author Organization [facility] Address [facility] [place] [address] Care Team Providers Care Electric Switch Tester Name Role Phone Jeannette Sheets [facility] Primary Care Provider Lalitha Khan MD Unavailable [phone] Franci Sandhu MD Unavailable [phone] Billy Cadet MD Unavailable [phone] Radha Childs [facility] Unavailable [phone] West Pelletier MD Primary Care Provider [phone] Encounter Details Date Type Department Care Team (Late st Contact Info) Description 06/13/2021 MyChart Message Enc [facility] Medical Group Family Medicine [address] [address] Jeannette Sheets [facility] RE: Medication Questions Social History Tobacco [...] on file 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 [address] [place] [address] OBGYN 11/05/19 Franci Sandhu MD [address] [place] [address] DERMATOLOGY 11/05/19 Billy Cadet MD [address] [facility] [address] [place] [address] GASTROENTEROLOGY 05/11/21 Radha Childs [facility] [address] [facility] [address] [place] [address] OBGYN 01/25/23 documented as of this encounter
--- OUTSIDE RECORDS SUMMARY | 2025-03-26 08:54 | XMS_ITS | Encounter Summary ---
Author Organization [facility] Address [facility] [place] [address] Care Team Providers Care General Surgeon Name Role Phone Jeannette Sheets [facility] Primary Care Provider Lalitha Khan MD Unavailable [phone] Franci Sandhu MD Unavailable [phone] Billy Cadet MD Unavailable [phone] Radha Childs [facility] Unavailable [phone] West Pelletier MD Primary Care Provider [phone] Encounter Details Date Type Department Care Team (Late st Contact Info) Description 02/17/2021 MyChart Message Enc [facility] Medical Group Family Medicine [address] [address] Jeannette Sheets [facility] RE: Medication Questions Social History Tobacco [...] on file 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 Gender Identity Not on file Sexual Orientation [...] on filedocumented in this encounter Care Teams General Surgeon Relationship Specialty Start Date End Date Jeannette Sheets [facility] PCP - General NURSE PRACTITIONER 11/05/19 07/25/24 West Pelletier MD [address] [place] [phone] PCP - General FAMILY PRACTICE 07/26/24 Lalitha Monteiro MD [address] [employer] [facility] [address] [place] [address] OBGYN 11/05/19 Franci Sandhu MD [address] [place] [address] DERMATOLOGY 11/05/19 Billy Cadet MD [address] [facility] [address] [place] [address] GASTROENTEROLOGY 05/11/21 Radha Childs [facility] [address] [employer] [address] [place] [address] OBGYN 01/25/23 documented as of this encounter
--- OUTSIDE RECORDS SUMMARY | 2025-03-26 08:54 | XMS_ITS | Encounter Summary ---
Author Organization [facility] Address [address] [place] [address] Care Team Providers Care Show Card Letterer Name Role Phone Jeannette Sheets [facility] Primary Care Provider Lalitha Khan MD Unavailable [phone] Franci Sandhu MD Unavailable [phone] Billy Cadet MD Unavailable [phone] Radha Childs [facility] Unavailable [phone] West Pelletier MD Primary Care Provider [phone] Encounter Details Date Type Department Care Team (Late st Contact Info) Description 09/07/2022 MyChart Message Enc [facility] Medical Group Family Medicine [address] [address] Jeannette Sheets [facility] New meds Social History Tobacco [...] on file 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 Gender Identity Not on file Sexual Orientation Not on file documented as of this encounter Plan of Treatment Not on file documented as of this encounter Visit Diagnoses Not on filedocumented in this encounter Additional Health Concerns Assessment Noted Time PHQ-9 Depression Total Score: 0 07/28/20 22 8:11 AM CDT documented as of this encounter Care Teams Show Card Letterer Relationship Specialty Start Date End Date Jeannette Sheets [facility] PCP - General NURSE PRACTITIONER 11/05/19 07/25/24 West Pelletier MD [address] [place] [phone] PCP - General FAMILY PRACTICE 07/26/24 Lalitha Monteiro MD [address] [employer] [address] [place] [address] OBGYN 11/05/19 Franci Sandhu MD [address] [place] [address] DERMATOLOGY 11/05/19 Billy Cadet MD [address] [facility] [address] [place] [address] GASTROENTEROLOGY 05/11/21 Radha Childs [facility] [address] [employer] [address] [place] [address] OBGYN 01/25/23 documented as of this encounter
--- OUTSIDE RECORDS SUMMARY | 2025-03-26 08:54 | XMS_ITS | Encounter Summary ---
Author Organization [facility] Address [address] [place] [address] Care Team Providers Care Analytical Research Program Manager Name Role Phone Jeannette Sheets [facility] Primary Care Provider Lalitha Khan MD Unavailable [phone] Franci Sandhu MD Unavailable [phone] Billy Cadet MD Unavailable [phone] Radha Childs [facility] Unavailable [phone] West Pelletier MD Primary Care Provider [phone] Encounter Details Date Type Department Care Team (Late st Contact Info) Description 07/16/2024 MyChart Message Enc [facility] Medical Group Family Medicine [address] [address] Jeannette Sheets [facility] July Social History Tobacco Use Types [...] on file 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 Gender Identity Not on file Sexual Orientation Not on file documented as of this encounter Plan of Treatment Not on file documented as of this encounter Visit Diagnoses Not on filedocumented in this encounter Additional Health Concerns Assessment Noted Time PHQ-9 Depression Total Score: 4 05/02/20 24 2:13 PM CDT documented as of this encounter Care Teams Analytical Research Program Manager Relationship Specialty Start Date End Date Jeannette Sheets [facility] PCP - General NURSE PRACTITIONER 11/05/19 07/25/24 West Pelletier MD [address] [place] [address] PCP - General FAMILY PRACTICE 07/26/24 Lalitha Monteiro MD [address] [employer] [address] [place], [place] [address] OBGYN 11/05/19 Franci Sandhu MD [address] [place] [address] DERMATOLOGY 11/05/19 Billy Cadet MD [address] [facility] [address] [place] [address] GASTROENTEROLOGY 05/11/21 Radha Childs [facility] [address] [employer] [address] [place] [address] OBGYN 01/25/23 documented as of this encounter
[2025-03-26 20:08] LABS: Hematocrit 43.9 % (37.0-47.0); Mean Corpuscular HGB Conc 31.9 g/dl (32-36); Mean Corpuscular Hemoglobin 29.4 pg (26-34); Platelet Count Result 408 k/mm3 (150-375); Red Blood Count 4.77 M/mm3 (4.2-5.4); Red Cell Distribution Width 12.4 % (11.5-14.5); White Blood Count 9.4 K/mm3 (4.5-10.0)
[2025-03-26 21:17] LABS: Free T4 Free Thyroxine 1.14 ng/dL (0.78-2.19); Vitamin D 25 Hydroxy 38.2 ng/mL
[2025-03-26 21:28] LABS: Alanine Aminotransferase 16 U/L (6-35); Albumin Level 4.3 g/dL (3.5-5.1); Alkaline Phosphatase 90 U/L (38-126); Anion Gap 13 mmol/L (4-12); Aspartate Amino Transferase 33 U/L (14-36); Bilirubin,Total 0.3 mg/dL (0.2-1.3); Blood Urea Nitrogen 12 mg/dL (7-17); Calcium 10.1 mg/dL (8.4-10.2); Carbon Dioxide 24 mmol/L (22-30); Chloride 101 mmol/L (98-107); Cholesterol 226 mg/dL (0-200); Estimated Glomerular Filt Rate > 60; Glucose 76 mg/dL (65-110); HDL Direct 49 mg/dL; Potassium 4.2 mmol/L (3.4-5.0); Sodium 138 mmol/L (137-145); Triglycerides 197 mg/dL (<150)
[2025-03-26 21:39] LABS: LDL Cholesterol Direct 111 mg/dL
[2025-03-26 21:58] LABS: Thyroid Stimulating Hormone 0.775 uIU/mL (0.465-4.680)
[2025-03-26 22:17] LABS: Hemoglobin A1C 5.7 % (<5.7)
== END 2025-03-26 08:40 | disposition home or self-care (01) ==
LOC: ANHGOSHLAB 08:41
PROVIDERS: PCP Nurse Practitioner; Visit Provider Nurse Practitioner
DX: Z13.1 Encounter for screening for diabetes mellitus (principal); Z76.89 Persons encountering health services in other specified circumstances; R79.89 Other specified abnormal findings of blood chemistry; E55.9 Vitamin D deficiency, unspecified
CPT/HCPCS: 36415; 80053; 80061; 82306; 83036; 84439; 84443; 85027